=== PATIENT | male | born 1945 | race Caucasian/White ===

== ENCOUNTER 2022-01-24 00:58 | Outpatient (RCR) | payer MEDICARE, OTHER, SELFPAY ==
[2022-01-24] MEDS: Normal Saline Flush 10 ML SYR IVP (09:02)
[2022-01-24 09:06] LABS: Abs Immature Grans 0.04 10^3/uL (0.0-0.06); Absolute Basophil Count 0.03 10^3/uL (0.0-0.2); Absolute Lymphocyte Count 2.53 10^3/uL (1.2-3.4); Absolute Monocyte Count 1.48 10^3/uL (0.1-0.8); Basophils % 0.3; Eosinophils % 2.7; HCT 30.4 % (40.0-50.0); HGB 9.3 g/dL (13.5-17.5); Immature Grans % 0.4; Lymphocytes % 23.1; MCH 26.9 pg (27.0-33.0); MCHC 30.6 % (32.0-36.0); MCV 88 fL (80-95); MPV 10.6 fL (8.0-11.0); Monocytes % 13.5; Platelet Count 455 10^3/uL (130-400); RBC 3.46 10^6/uL (4.36-5.78); RDW 13.3 % (11.8-14.1); WBC 10.97 10^3/uL (4.4-10.8)
[2022-01-24 09:11] LABS: Absolute Neutrophil Count 6.58 10^3/uL (1.2-6.7)
[2022-01-24 09:22] LABS: ALT 14 U/L (16-63); AST 10 U/L (15-37); Albumin 2.6 g/dL (3.4-5.0); Alkaline Phosphatase 104 U/L (46-116); Anion Gap 6.9 mmol/L (3-11); BUN 25 mg/dL (7-18); Bilirubin, Total 0.3 mg/dL (0.2-1.0); CO2 30.1 mmol/L (21.0-32.0); CREATININE 1.2 mg/dL (0.70-1.30); Calcium 8.7 mg/dL (8.5-10.1); Chloride 102 mmol/L (98-107); Estimated GFR 58.56 (mL/min/1.73m2); Glucose 277 mg/dL (74-106); Potassium 4.2 mmol/L (3.5-5.1); Sodium 139 mmol/L (136-145)
[2022-01-24 10:04] LABS: Iron 29 ug/dL (65-175); Total Iron Binding Capacity 317 ug/dL (250-450); Transferrin Sat 9 % (20-55)
[2022-01-24 10:09] LABS: Ferritin 57 ng/mL (26-388)
[2022-01-24 14:19] LABS: Vitamin B12 620 pg/mL (193-986)
[2022-01-24 19:13] LABS: CEA 19.1 ng/mL (See Note)
== END 2022-01-29 23:59 | disposition home or self-care (01) ==
LOC: INF 00:58
PROVIDERS: PCP Internal Medicine; Visit Provider Internal Medicine Hematology & Oncology
DX: C20 Malignant neoplasm of rectum (principal); D64.9 Anemia, unspecified; Z45.2 Encounter for adjustment and management of vascular access device; C78.00 Secondary malignant neoplasm of unspecified lung
CPT/HCPCS: 36591; 80053; 82378; 82607; 82728; 83540; 83550; 85025

== ENCOUNTER 2022-02-28 01:03 | Outpatient (RCR) | payer OTHER, SELFPAY ==
[2022-02-07] MEDS: Normal Saline Flush 10 ML SYR IVP (09:42)
[2022-02-07 09:48] LABS: Abs Immature Grans 0.02 10^3/uL (0.0-0.06); Absolute Basophil Count 0.02 10^3/uL (0.0-0.2); Absolute Eosinophil Count 0.26 10^3/uL (0.0-0.7); Absolute Lymphocyte Count 1.63 10^3/uL (1.2-3.4); Absolute Monocyte Count 1.08 10^3/uL (0.1-0.8); Absolute Neutrophil Count 3.19 10^3/uL (1.2-6.7); Basophils % 0.3; Eosinophils % 4.2; HCT 30.9 % (40.0-50.0); HGB 9.9 g/dL (13.5-17.5); Immature Grans % 0.3; Lymphocytes % 26.3; MCH 27.7 pg (27.0-33.0); MCV 86 fL (80-95); MPV 10.9 fL (8.0-11.0); Monocytes % 17.4; Neutrophils % 51.5; Platelet Count 282 10^3/uL (130-400); RBC 3.58 10^6/uL (4.36-5.78); RDW 14.1 % (11.8-14.1); RDW-SD 42.1 fL
[2022-02-07 10:03] LABS: ALT 23 U/L (16-63); AST 15 U/L (15-37); Albumin 2.5 g/dL (3.4-5.0); Alkaline Phosphatase 105 U/L (46-116); Anion Gap 8.3 mmol/L (3-11); BUN 23 mg/dL (7-18); Bilirubin, Total 0.3 mg/dL (0.2-1.0); CO2 30.7 mmol/L (21.0-32.0); CREATININE 1.1 mg/dL (0.70-1.30); Calcium 9.2 mg/dL (8.5-10.1); Chloride 98 mmol/L (98-107); Estimated GFR 68.71 (mL/min/1.73m2); Glucose 260 mg/dL (74-106); Potassium 3.5 mmol/L (3.5-5.1); Sodium 137 mmol/L (136-145); Total Protein 7.1 g/dL (6.4-8.2)
[2022-02-07 20:43] LABS: CEA 19.1 ng/mL (See Note)
[2022-02-14] MEDS: Normal Saline Flush 10 ML SYR IVP (08:36)
[2022-02-14 08:47] LABS: Abs Immature Grans 0.08 10^3/uL (0.0-0.06); HCT 34.7 % (40.0-50.0); HGB 10.7 g/dL (13.5-17.5); MCH 26.9 pg (27.0-33.0); MCHC 30.8 % (32.0-36.0); MCV 87 fL (80-95); MPV 10.2 fL (8.0-11.0); Platelet Count 548 10^3/uL (130-400); RBC 3.98 10^6/uL (4.36-5.78); RDW 14.9 % (11.8-14.1); RDW-SD 45.9 fL; WBC 7.92 10^3/uL (4.4-10.8)
[2022-02-14 09:07] LABS: ALT 18 U/L (16-63); AST 15 U/L (15-37); Absolute Basophil Count 0.08 10^3/uL (0.0-0.2); Absolute Eosinophil Count 0.32 10^3/uL (0.0-0.7); Absolute Lymphocyte Count 1.98 10^3/uL (1.2-3.4); Absolute Monocyte Count 1.19 10^3/uL (0.1-0.8); Absolute Neutrophil Count 4.36 10^3/uL (1.2-6.7); Albumin 2.6 g/dL (3.4-5.0); Alkaline Phosphatase 137 U/L (46-116); Anion Gap 6.6 mmol/L (3-11); BUN 24 mg/dL (7-18); Bilirubin, Total 0.3 mg/dL (0.2-1.0); CO2 33.4 mmol/L (21.0-32.0); CREATININE 1.2 mg/dL (0.70-1.30); Calcium 9.8 mg/dL (8.5-10.1); Chloride 95 mmol/L (98-107); Diff Comment Manual Differential; Glucose 380 mg/dL (74-106); Polychromasia Present; Potassium 3.5 mmol/L (3.5-5.1); Sodium 135 mmol/L (136-145); Total Protein 7.2 g/dL (6.4-8.2)
[2022-02-17 07:54] LABS: CEA 17.9 ng/mL (See Note)
[2022-02-28 10:14] LABS: Abs Immature Grans 0.02 10^3/uL (0.0-0.06); Absolute Basophil Count 0.02 10^3/uL (0.0-0.2); Absolute Eosinophil Count 0.22 10^3/uL (0.0-0.7); Absolute Lymphocyte Count 1.74 10^3/uL (1.2-3.4); Absolute Monocyte Count 0.99 10^3/uL (0.1-0.8); Absolute Neutrophil Count 5.39 10^3/uL (1.2-6.7); Basophils % 0.2; Eosinophils % 2.6; HCT 35.9 % (40.0-50.0); HGB 11.1 g/dL (13.5-17.5); Immature Grans % 0.2; Lymphocytes % 20.8; MCH 27.6 pg (27.0-33.0); MCHC 30.9 % (32.0-36.0); MCV 89 fL (80-95); MPV 11.1 fL (8.0-11.0); Monocytes % 11.8; Neutrophils % 64.4; Platelet Count 182 10^3/uL (130-400); RBC 4.02 10^6/uL (4.36-5.78); RDW 17.1 % (11.8-14.1); RDW-SD 49.1 fL; WBC 8.38 10^3/uL (4.4-10.8)
[2022-02-28] MEDS: Normal Saline Flush 10 ML SYR IVP (10:24)
[2022-02-28 10:28] LABS: ALT 23 U/L (16-63); AST 20 U/L (15-37); Albumin 2.9 g/dL (3.4-5.0); Alkaline Phosphatase 109 U/L (46-116); Anion Gap 7.5 mmol/L (3-11); BUN 21 mg/dL (7-18); Bilirubin, Total 0.4 mg/dL (0.2-1.0); CO2 30.5 mmol/L (21.0-32.0); CREATININE 1.2 mg/dL (0.70-1.30); Calcium 9.2 mg/dL (8.5-10.1); Chloride 97 mmol/L (98-107); Glucose 405 mg/dL (74-106); Potassium 3.5 mmol/L (3.5-5.1); Sodium 135 mmol/L (136-145)
== END 2022-02-28 23:59 | disposition home or self-care (01) ==
LOC: INF 01:03
PROVIDERS: PCP Internal Medicine; Visit Provider Internal Medicine Hematology & Oncology
DX: C20 Malignant neoplasm of rectum (principal); Z45.2 Encounter for adjustment and management of vascular access device
CPT/HCPCS: 36591; 80053; 82378; 85025

== ENCOUNTER 2022-03-28 01:25 | Outpatient (RCR) | payer OTHER, SELFPAY ==
[2022-03-14 10:29] LABS: Abs Immature Grans 0.01 10^3/uL (0.0-0.06); Absolute Basophil Count 0.03 10^3/uL (0.0-0.2); Absolute Eosinophil Count 0.08 10^3/uL (0.0-0.7); Absolute Lymphocyte Count 1.67 10^3/uL (1.2-3.4); Absolute Monocyte Count 0.94 10^3/uL (0.1-0.8); Basophils % 0.5; Eosinophils % 1.2; HCT 35.3 % (40.0-50.0); Immature Grans % 0.2; MCH 28.4 pg (27.0-33.0); MCHC 31.2 % (32.0-36.0); MCV 91 fL (80-95); MPV 10.5 fL (8.0-11.0); Monocytes % 14.6; Neutrophils % 57.5; Platelet Count 140 10^3/uL (130-400); RBC 3.87 10^6/uL (4.36-5.78); RDW 19.4 % (11.8-14.1); RDW-SD 60.6 fL; WBC 6.43 10^3/uL (4.4-10.8)
[2022-03-14] MEDS: Normal Saline Flush 10 ML SYR IVP (10:39)
[2022-03-14 11:12] LABS: ALT 24 U/L (16-63); AST 27 U/L (15-37); Albumin 2.9 g/dL (3.4-5.0); Alkaline Phosphatase 85 U/L (46-116); Anion Gap 5.6 mmol/L (3-11); BUN 16 mg/dL (7-18); Bilirubin, Total 0.4 mg/dL (0.2-1.0); CO2 30.4 mmol/L (21.0-32.0); CREATININE 1.2 mg/dL (0.70-1.30); Chloride 104 mmol/L (98-107); Estimated GFR 61.52 (mL/min/1.73m2); Glucose 297 mg/dL (74-106); Sodium 140 mmol/L (136-145); Total Protein 6.5 g/dL (6.4-8.2)
[2022-03-14 20:46] LABS: CEA 8.2 ng/mL (See Note)
[2022-03-28] MEDS: Normal Saline Flush 10 ML SYR IVP (09:29)
[2022-03-28 09:51] LABS: Abs Immature Grans 0.03 10^3/uL (0.0-0.06); Absolute Basophil Count 0.02 10^3/uL (0.0-0.2); Absolute Eosinophil Count 0.12 10^3/uL (0.0-0.7); Absolute Lymphocyte Count 1.49 10^3/uL (1.2-3.4); Absolute Monocyte Count 0.94 10^3/uL (0.1-0.8); Absolute Neutrophil Count 3.33 10^3/uL (1.2-6.7); Basophils % 0.3; HCT 36.4 % (40.0-50.0); HGB 11.6 g/dL (13.5-17.5); Immature Grans % 0.5; Lymphocytes % 25.1; MCH 29.7 pg (27.0-33.0); MCHC 31.9 % (32.0-36.0); MCV 93 fL (80-95); MPV 10.9 fL (8.0-11.0); Monocytes % 15.9; Neutrophils % 56.2; Platelet Count 137 10^3/uL (130-400); RBC 3.91 10^6/uL (4.36-5.78); RDW 21.1 % (11.8-14.1); RDW-SD 69.4 fL; WBC 5.93 10^3/uL (4.4-10.8)
[2022-03-28 10:07] LABS: ALT 23 U/L (16-63); AST 20 U/L (15-37); Alkaline Phosphatase 81 U/L (46-116); Anion Gap 6.7 mmol/L (3-11); BUN 15 mg/dL (7-18); Bilirubin, Total 0.4 mg/dL (0.2-1.0); CO2 29.3 mmol/L (21.0-32.0); CREATININE 1.3 mg/dL (0.70-1.30); Calcium 9.1 mg/dL (8.5-10.1); Chloride 102 mmol/L (98-107); Estimated GFR 55.88 (mL/min/1.73m2); Glucose 352 mg/dL (74-106); Potassium 4.2 mmol/L (3.5-5.1); Sodium 138 mmol/L (136-145); Total Protein 6.5 g/dL (6.4-8.2)
[2022-03-28 10:31] LABS: Anisocytosis 3+; Diff Comment Diff Reviewed; Polychromasia Present
== END 2022-03-31 23:59 | disposition home or self-care (01) ==
LOC: INF 01:25
PROVIDERS: PCP Internal Medicine; Visit Provider Internal Medicine Hematology & Oncology
DX: C20 Malignant neoplasm of rectum (principal); Z45.2 Encounter for adjustment and management of vascular access device
CPT/HCPCS: 36591; 80053; 82378; 85025

== ENCOUNTER → 2022-04-08 02:33 | Outpatient (CLI) | payer OTHER, SELFPAY ==
--- NOTE | 2022-04-08 10:00 | DI.MRI_ITS ---
Exam(s) MR ABDOMEN WO/W EXAM: MR ABDOMEN WO/W CLINICAL HISTORY: RECTAL CT,C20;ABNL CT WITH SUSPICIOUS LIVER LESIONS,R93.2,[id number] TECHNIQUE: Multiplanar multisequence MRI of the Abdomen was performed. CONTRAST MATERIAL: IV Contrast: 20 mL of [place] contrast administered. COMPARISON: CT CT CHEST/ABD/PELVIS W/CONTRAST from 03/21/2022 FINDINGS: The examination is limited due to patient motion artifact. Liver: There is no evidence of a hepatic mass or enhancing lesion. Pancreas: Unremarkable. Gallbladder and Bile Ducts: Status post cholecystectomy. No significant biliary ductal dilatation. Adrenals: The left adrenal nodularity is isointense to the remainder of the adrenal gland. The right adrenal gland is unremarkable. Kidneys: There are bilateral simple cysts in the kidneys. No follow-up is recommended. Spleen: Unremarkable. Bowel: There is diverticulosis seen in the colon. There is an ostomy in the left abdominal wall whic h is incompletely imaged. Aorta: Unremarkable. Soft Tissues: Unremarkable. Bone: Unremarkable. Lymph Nodes: Unremarkable. IMPRESSION: 1. No evidence of a hepatic mass or enhancing lesion. 2. Left adrenal nodule appears stable compared to the CT scan from 03/21/2022. 3. Simple bilateral renal cysts. DATA REPOSITORY:
[2022-04-08] MEDS: Normal Saline - Diluent 50 ML VIAL IV (10:34)
[2022-04-08] MEDS: Gadoterate meglumine 20 ML VIAL IVP (10:37)
== END ==
PROVIDERS: PCP Internal Medicine; Visit Provider Internal Medicine Hematology & Oncology
DX: C20 Malignant neoplasm of rectum (principal); R93.2 Abnormal findings on diagnostic imaging of liver and biliary tract; E27.8 Other specified disorders of adrenal gland
CPT/HCPCS: 74183

== ENCOUNTER 2022-04-25 00:57 | Outpatient (RCR) | payer OTHER, SELFPAY ==
[2022-04-08] MEDS: Heparin 500 UNITS/5 ML SYRINGE IV (09:22)
[2022-04-08] MEDS: Normal Saline Flush 10 ML SYR IVP (09:22)
[2022-04-11] MEDS: Normal Saline Flush 10 ML SYR IVP (09:20)
[2022-04-11 09:30] LABS: Abs Immature Grans 0.01 10^3/uL (0.0-0.06); Absolute Basophil Count 0.02 10^3/uL (0.0-0.2); Absolute Eosinophil Count 0.12 10^3/uL (0.0-0.7); Absolute Lymphocyte Count 1.83 10^3/uL (1.2-3.4); Absolute Monocyte Count 1.06 10^3/uL (0.1-0.8); Absolute Neutrophil Count 3.52 10^3/uL (1.2-6.7); Basophils % 0.3; Eosinophils % 1.8; HGB 11.7 g/dL (13.5-17.5); Immature Grans % 0.2; Lymphocytes % 27.9; MCH 29.9 pg (27.0-33.0); MCHC 31.6 % (32.0-36.0); MCV 95 fL (80-95); MPV 11.4 fL (8.0-11.0); Monocytes % 16.2; Neutrophils % 53.6; Platelet Count 122 10^3/uL (130-400); RBC 3.91 10^6/uL (4.36-5.78); RDW-SD 72.9 fL; WBC 6.56 10^3/uL (4.4-10.8)
[2022-04-11 09:51] LABS: Anisocytosis 2+; Diff Comment RBC Morph Reviewed
[2022-04-11 09:55] LABS: ALT 19 U/L (16-63); AST 24 U/L (15-37); Alkaline Phosphatase 80 U/L (46-116); Anion Gap 5.8 mmol/L (3-11); BUN 16 mg/dL (7-18); Bilirubin, Total 0.5 mg/dL (0.2-1.0); CO2 30.2 mmol/L (21.0-32.0); CREATININE 1.1 mg/dL (0.70-1.30); Calcium 9.1 mg/dL (8.5-10.1); Chloride 104 mmol/L (98-107); Estimated GFR 68.29 (mL/min/1.73m2); Glucose 242 mg/dL (74-106); Potassium 3.8 mmol/L (3.5-5.1); Sodium 140 mmol/L (136-145); Total Protein 6.7 g/dL (6.4-8.2)
[2022-04-11 19:57] LABS: CEA 4.4 ng/mL (See Note)
[2022-04-25] MEDS: Normal Saline Flush 10 ML SYR IVP (09:00)
[2022-04-25 09:01] LABS: Abs Immature Grans 0.02 10^3/uL (0.0-0.06); Absolute Basophil Count 0.03 10^3/uL (0.0-0.2); Absolute Eosinophil Count 0.13 10^3/uL (0.0-0.7); Absolute Lymphocyte Count 1.74 10^3/uL (1.2-3.4); Absolute Monocyte Count 1.03 10^3/uL (0.1-0.8); Basophils % 0.5; Eosinophils % 2.1; HCT 38.7 % (40.0-50.0); HGB 12.2 g/dL (13.5-17.5); Immature Grans % 0.3; Lymphocytes % 27.8; MCH 30.6 pg (27.0-33.0); MCHC 31.5 % (32.0-36.0); MCV 97 fL (80-95); MPV 10.5 fL (8.0-11.0); Monocytes % 16.5; Neutrophils % 52.8; Platelet Count 145 10^3/uL (130-400); RBC 3.99 10^6/uL (4.36-5.78); RDW 19.4 % (11.8-14.1); RDW-SD 69.2 fL; WBC 6.25 10^3/uL (4.4-10.8)
[2022-04-25 09:30] LABS: ALT 22 U/L (16-63); AST 21 U/L (15-37); Albumin 3.1 g/dL (3.4-5.0); Alkaline Phosphatase 81 U/L (46-116); Anion Gap 4.7 mmol/L (3-11); BUN 13 mg/dL (7-18); Bilirubin, Total 0.5 mg/dL (0.2-1.0); CO2 32.3 mmol/L (21.0-32.0); CREATININE 1.1 mg/dL (0.70-1.30); Calcium 9.3 mg/dL (8.5-10.1); Chloride 100 mmol/L (98-107); Estimated GFR 68.29 (mL/min/1.73m2); Glucose 264 mg/dL (74-106); Potassium 3.7 mmol/L (3.5-5.1); Sodium 137 mmol/L (136-145); Total Protein 6.9 g/dL (6.4-8.2)
[2022-04-25 18:49] LABS: CEA 4.1 ng/mL (See Note)
== END 2022-04-30 23:59 | disposition home or self-care (01) ==
LOC: INF 00:57
PROVIDERS: PCP Internal Medicine; Visit Provider Internal Medicine Hematology & Oncology
DX: Z45.2 Encounter for adjustment and management of vascular access device (principal); C20 Malignant neoplasm of rectum
CPT/HCPCS: 36591; 80053; 96523; 82378; 85025

== ENCOUNTER 2022-05-30 10:00 | Outpatient (RCR) | payer OTHER, SELFPAY ==
[2022-05-09] MEDS: Normal Saline Flush 10 ML SYR IVP (10:05)
[2022-05-09 10:18] LABS: Abs Immature Grans 0.01 10^3/uL (0.0-0.06); Absolute Basophil Count 0.03 10^3/uL (0.0-0.2); Absolute Eosinophil Count 0.19 10^3/uL (0.0-0.7); Absolute Lymphocyte Count 1.52 10^3/uL (1.2-3.4); Absolute Neutrophil Count 2.56 10^3/uL (1.2-6.7); Basophils % 0.6; Eosinophils % 3.7; HCT 38.6 % (40.0-50.0); HGB 12.3 g/dL (13.5-17.5); Immature Grans % 0.2; Lymphocytes % 29.7; MCH 30.7 pg (27.0-33.0); MCHC 31.9 % (32.0-36.0); MCV 96 fL (80-95); Monocytes % 15.7; Neutrophils % 50.1; Platelet Count 117 10^3/uL (130-400); RBC 4.01 10^6/uL (4.36-5.78); RDW 17.5 % (11.8-14.1); RDW-SD 63.2 fL; WBC 5.11 10^3/uL (4.4-10.8)
[2022-05-09 10:34] LABS: ALT 27 U/L (16-63); AST 27 U/L (15-37); Albumin 3.1 g/dL (3.4-5.0); Alkaline Phosphatase 77 U/L (46-116); Anion Gap 7.9 mmol/L (3-11); BUN 15 mg/dL (7-18); Bilirubin, Total 0.5 mg/dL (0.2-1.0); CO2 29.1 mmol/L (21.0-32.0); Chloride 101 mmol/L (98-107); Estimated GFR 76.56 (mL/min/1.73m2); Glucose 252 mg/dL (74-106); Potassium 3.5 mmol/L (3.5-5.1); Sodium 138 mmol/L (136-145); Total Protein 6.9 g/dL (6.4-8.2)
[2022-05-09 19:11] LABS: CEA 3.7 ng/mL (See Note)
[2022-05-30 10:08] LABS: Abs Immature Grans 0.03 10^3/uL (0.0-0.06); Absolute Basophil Count 0.04 10^3/uL (0.0-0.2); Absolute Eosinophil Count 0.28 10^3/uL (0.0-0.7); Absolute Monocyte Count 1.18 10^3/uL (0.1-0.8); Absolute Neutrophil Count 4.04 10^3/uL (1.2-6.7); Basophils % 0.6; Eosinophils % 3.9; HCT 38.4 % (40.0-50.0); HGB 12.3 g/dL (13.5-17.5); Immature Grans % 0.4; Lymphocytes % 23.4; MCH 31.9 pg (27.0-33.0); MCV 100 fL (80-95); MPV 10.9 fL (8.0-11.0); Monocytes % 16.2; Neutrophils % 55.5; Platelet Count 222 10^3/uL (130-400); RBC 3.86 10^6/uL (4.36-5.78); RDW 15.3 % (11.8-14.1); RDW-SD 55.1 fL; WBC 7.27 10^3/uL (4.4-10.8)
[2022-05-30] MEDS: Heparin 500 UNITS/5 ML SYRINGE IV (10:08)
[2022-05-30] MEDS: Normal Saline Flush 10 ML SYR IVP (10:08)
[2022-05-30 10:46] LABS: ALT 24 U/L (16-63); AST 27 U/L (15-37); Albumin 2.9 g/dL (3.4-5.0); Alkaline Phosphatase 86 U/L (46-116); Anion Gap 7.1 mmol/L (3-11); BUN 21 mg/dL (7-18); Bilirubin, Total 0.5 mg/dL (0.2-1.0); CO2 28.9 mmol/L (21.0-32.0); CREATININE 1.2 mg/dL (0.70-1.30); Calcium 8.7 mg/dL (8.5-10.1); Chloride 101 mmol/L (98-107); Estimated GFR 61.52 (mL/min/1.73m2); Glucose 278 mg/dL (74-106); Potassium 3.8 mmol/L (3.5-5.1); Sodium 137 mmol/L (136-145)
[2022-05-30 20:47] LABS: CEA 4.4 ng/mL (See Note)
== END 2022-05-31 23:59 | disposition home or self-care (01) ==
LOC: INF 10:00
PROVIDERS: PCP Internal Medicine; Visit Provider Internal Medicine Hematology & Oncology
DX: C20 Malignant neoplasm of rectum (principal); Z45.2 Encounter for adjustment and management of vascular access device
CPT/HCPCS: 36591; 80053; 82378; 85025

== ENCOUNTER 2022-06-27 00:52 | Outpatient (RCR) | payer OTHER, SELFPAY ==
[2022-06-06] MEDS: Normal Saline Flush 10 ML SYR IVP (11:51)
[2022-06-06] MEDS: Heparin 500 UNITS/5 ML SYRINGE IV (11:52)
[2022-06-06 11:57] LABS: Abs Immature Grans 0.03 10^3/uL (0.0-0.06); Absolute Basophil Count 0.05 10^3/uL (0.0-0.2); Absolute Eosinophil Count 0.33 10^3/uL (0.0-0.7); Absolute Lymphocyte Count 1.53 10^3/uL (1.2-3.4); Absolute Monocyte Count 1.06 10^3/uL (0.1-0.8); Absolute Neutrophil Count 5.79 10^3/uL (1.2-6.7); Basophils % 0.6; Eosinophils % 3.8; HCT 39.5 % (40.0-50.0); HGB 12.5 g/dL (13.5-17.5); Immature Grans % 0.3; Lymphocytes % 17.4; MCH 31.6 pg (27.0-33.0); MCHC 31.6 % (32.0-36.0); MCV 100 fL (80-95); MPV 10.9 fL (8.0-11.0); Monocytes % 12.1; Neutrophils % 65.8; Platelet Count 210 10^3/uL (130-400); RBC 3.96 10^6/uL (4.36-5.78); RDW 14.5 % (11.8-14.1); RDW-SD 52.8 fL; WBC 8.79 10^3/uL (4.4-10.8)
[2022-06-06 12:15] LABS: ALT 24 U/L (16-63); AST 28 U/L (15-37); Alkaline Phosphatase 94 U/L (46-116); Anion Gap 6.7 mmol/L (3-11); BUN 16 mg/dL (7-18); Bilirubin, Total 0.7 mg/dL (0.2-1.0); CO2 28.3 mmol/L (21.0-32.0); CREATININE 1.2 mg/dL (0.70-1.30); Chloride 102 mmol/L (98-107); Estimated GFR 61.52 (mL/min/1.73m2); Glucose 283 mg/dL (74-106); Sodium 137 mmol/L (136-145); Total Protein 7.3 g/dL (6.4-8.2)
[2022-06-13] MEDS: Normal Saline Flush 10 ML SYR IVP (09:32)
[2022-06-13] MEDS: Heparin 500 UNITS/5 ML SYRINGE IV (09:33)
[2022-06-13 09:48] LABS: Abs Immature Grans 0.03 10^3/uL (0.0-0.06); Absolute Basophil Count 0.03 10^3/uL (0.0-0.2); Absolute Eosinophil Count 0.42 10^3/uL (0.0-0.7); Absolute Lymphocyte Count 1.03 10^3/uL (1.2-3.4); Absolute Monocyte Count 0.86 10^3/uL (0.1-0.8); Absolute Neutrophil Count 4.12 10^3/uL (1.2-6.7); Basophils % 0.5; Eosinophils % 6.5; HCT 36.6 % (40.0-50.0); HGB 11.7 g/dL (13.5-17.5); Immature Grans % 0.5; Lymphocytes % 15.9; MCH 32.1 pg (27.0-33.0); MCV 100 fL (80-95); MPV 11.4 fL (8.0-11.0); Monocytes % 13.3; Neutrophils % 63.3; Platelet Count 174 10^3/uL (130-400); RBC 3.65 10^6/uL (4.36-5.78); RDW 14.1 % (11.8-14.1); RDW-SD 51.1 fL; WBC 6.49 10^3/uL (4.4-10.8)
[2022-06-13 10:04] LABS: ALT 19 U/L (16-63); AST 24 U/L (15-37); Albumin 2.9 g/dL (3.4-5.0); Alkaline Phosphatase 88 U/L (46-116); Anion Gap 6.6 mmol/L (3-11); BUN 20 mg/dL (7-18); Bilirubin, Total 0.6 mg/dL (0.2-1.0); CO2 29.4 mmol/L (21.0-32.0); CREATININE 1.1 mg/dL (0.70-1.30); Chloride 100 mmol/L (98-107); Estimated GFR 68.29 (mL/min/1.73m2); Glucose 329 mg/dL (74-106); Potassium 4.1 mmol/L (3.5-5.1); Sodium 136 mmol/L (136-145); Total Protein 7.1 g/dL (6.4-8.2)
[2022-06-20] MEDS: Heparin 500 UNITS/5 ML SYRINGE IV (11:19)
[2022-06-20] MEDS: Normal Saline Flush 10 ML SYR IVP (11:19)
[2022-06-20 11:28] LABS: Abs Immature Grans 0.03 10^3/uL (0.0-0.06); Absolute Basophil Count 0.02 10^3/uL (0.0-0.2); Absolute Eosinophil Count 0.57 10^3/uL (0.0-0.7); Absolute Monocyte Count 0.88 10^3/uL (0.1-0.8); Absolute Neutrophil Count 3.36 10^3/uL (1.2-6.7); Basophils % 0.4; Eosinophils % 10.1; HCT 36.4 % (40.0-50.0); HGB 11.9 g/dL (13.5-17.5); Immature Grans % 0.5; Lymphocytes % 14.1; MCH 32.7 pg (27.0-33.0); MCHC 32.7 % (32.0-36.0); MCV 100 fL (80-95); MPV 10.9 fL (8.0-11.0); Monocytes % 15.5; Neutrophils % 59.4; Platelet Count 146 10^3/uL (130-400); RBC 3.64 10^6/uL (4.36-5.78); RDW 14.5 % (11.8-14.1); RDW-SD 50.4 fL; WBC 5.66 10^3/uL (4.4-10.8)
[2022-06-20 11:43] LABS: ALT 23 U/L (16-63); AST 26 U/L (15-37); Albumin 3.1 g/dL (3.4-5.0); Alkaline Phosphatase 88 U/L (46-116); BUN 17 mg/dL (7-18); Bilirubin, Total 0.8 mg/dL (0.2-1.0); CREATININE 1.1 mg/dL (0.70-1.30); Calcium 9.4 mg/dL (8.5-10.1); Chloride 101 mmol/L (98-107); Estimated GFR 68.29 (mL/min/1.73m2); Glucose 318 mg/dL (74-106); Potassium 3.6 mmol/L (3.5-5.1); Sodium 137 mmol/L (136-145); Total Protein 7.2 g/dL (6.4-8.2)
[2022-06-27] MEDS: Heparin 500 UNITS/5 ML SYRINGE IV (11:55)
[2022-06-27] MEDS: Normal Saline Flush 10 ML SYR IVP (11:55)
[2022-06-27 12:08] LABS: Abs Immature Grans 0.02 10^3/uL (0.0-0.06); Absolute Basophil Count 0.02 10^3/uL (0.0-0.2); Absolute Eosinophil Count 0.67 10^3/uL (0.0-0.7); Absolute Lymphocyte Count 0.66 10^3/uL (1.2-3.4); Absolute Monocyte Count 1.13 10^3/uL (0.1-0.8); Absolute Neutrophil Count 4.16 10^3/uL (1.2-6.7); Basophils % 0.3; Eosinophils % 10.1; HCT 35.9 % (40.0-50.0); HGB 11.7 g/dL (13.5-17.5); Immature Grans % 0.3; Lymphocytes % 9.9; MCH 32.8 pg (27.0-33.0); MCHC 32.6 % (32.0-36.0); MCV 101 fL (80-95); MPV 10.5 fL (8.0-11.0); Neutrophils % 62.4; Nucleated RBC 0.3 % (0.0-0.3); Platelet Count 171 10^3/uL (130-400); RBC 3.57 10^6/uL (4.36-5.78); RDW 15.1 % (11.8-14.1); RDW-SD 51.4 fL; WBC 6.66 10^3/uL (4.4-10.8)
[2022-06-27 12:27] LABS: ALT 24 U/L (16-63); AST 27 U/L (15-37); Albumin 3.1 g/dL (3.4-5.0); Alkaline Phosphatase 88 U/L (46-116); Anion Gap 8.2 mmol/L (3-11); BUN 17 mg/dL (7-18); Bilirubin, Total 0.8 mg/dL (0.2-1.0); CO2 29.8 mmol/L (21.0-32.0); CREATININE 1.2 mg/dL (0.70-1.30); Calcium 8.8 mg/dL (8.5-10.1); Chloride 101 mmol/L (98-107); Estimated GFR 61.52 (mL/min/1.73m2); Glucose 240 mg/dL (74-106); Potassium 3.8 mmol/L (3.5-5.1); Sodium 139 mmol/L (136-145)
== END 2022-07-01 23:59 | disposition home or self-care (01) ==
LOC: INF 00:52
PROVIDERS: PCP Internal Medicine; Visit Provider Internal Medicine Hematology & Oncology
DX: Z45.2 Encounter for adjustment and management of vascular access device (principal); C20 Malignant neoplasm of rectum
CPT/HCPCS: 36591; 80053; 85025

== ENCOUNTER 2022-07-23 01:35 | Outpatient (RCR) | payer OTHER, SELFPAY ==
[2022-07-04] MEDS: Normal Saline Flush 10 ML SYR IVP (12:04)
[2022-07-04] MEDS: Heparin 500 UNITS/5 ML SYRINGE IV (12:04)
[2022-07-04 12:10] LABS: Abs Immature Grans 0.04 10^3/uL (0.0-0.06); Absolute Basophil Count 0.02 10^3/uL (0.0-0.2); Absolute Eosinophil Count 0.32 10^3/uL (0.0-0.7); Absolute Lymphocyte Count 0.43 10^3/uL (1.2-3.4); Absolute Monocyte Count 1.59 10^3/uL (0.1-0.8); Basophils % 0.2; Eosinophils % 3.4; HCT 34.1 % (40.0-50.0); HGB 11.1 g/dL (13.5-17.5); Immature Grans % 0.4; Lymphocytes % 4.5; MCHC 32.6 % (32.0-36.0); MCV 102 fL (80-95); MPV 10.5 fL (8.0-11.0); Monocytes % 16.7; Neutrophils % 74.8; Platelet Count 187 10^3/uL (130-400); RBC 3.36 10^6/uL (4.36-5.78); RDW 16.7 % (11.8-14.1); RDW-SD 57.6 fL
[2022-07-04 12:24] LABS: ALT 23 U/L (16-63); AST 29 U/L (15-37); Albumin 2.9 g/dL (3.4-5.0); Alkaline Phosphatase 91 U/L (46-116); Anion Gap 6.8 mmol/L (3-11); BUN 17 mg/dL (7-18); Bilirubin, Total 1.1 mg/dL (0.2-1.0); CO2 29.2 mmol/L (21.0-32.0); CREATININE 1.3 mg/dL (0.70-1.30); Calcium 8.7 mg/dL (8.5-10.1); Chloride 100 mmol/L (98-107); Estimated GFR 55.88 (mL/min/1.73m2); Glucose 221 mg/dL (74-106); Potassium 3.9 mmol/L (3.5-5.1); Sodium 136 mmol/L (136-145); Total Protein 6.7 g/dL (6.4-8.2)
[2022-07-04 12:27] LABS: Diff Comment Diff Reviewed; RBC Morphology Normal
[2022-07-09] MEDS: Normal Saline Flush 10 ML SYR IVP (11:48)
[2022-07-09] MEDS: Heparin 500 UNITS/5 ML SYRINGE IV (11:48)
[2022-07-09 11:58] LABS: Abs Immature Grans 0.12 10^3/uL (0.0-0.06); Absolute Basophil Count 0.03 10^3/uL (0.0-0.2); Absolute Eosinophil Count 0.71 10^3/uL (0.0-0.7); Absolute Lymphocyte Count 0.57 10^3/uL (1.2-3.4); Absolute Monocyte Count 1.47 10^3/uL (0.1-0.8); Absolute Neutrophil Count 3.92 10^3/uL (1.2-6.7); Basophils % 0.4; Eosinophils % 10.4; HCT 35.1 % (40.0-50.0); HGB 11.6 g/dL (13.5-17.5); Immature Grans % 1.8; Lymphocytes % 8.4; MCH 33.5 pg (27.0-33.0); MCV 101 fL (80-95); MPV 10.5 fL (8.0-11.0); Monocytes % 21.6; Neutrophils % 57.4; Platelet Count 217 10^3/uL (130-400); RBC 3.46 10^6/uL (4.36-5.78); RDW 18.1 % (11.8-14.1); RDW-SD 62.9 fL; WBC 6.82 10^3/uL (4.4-10.8)
[2022-07-09 12:13] LABS: ALT 28 U/L (16-63); AST 33 U/L (15-37); Albumin 2.9 g/dL (3.4-5.0); Alkaline Phosphatase 98 U/L (46-116); Anion Gap 9.2 mmol/L (3-11); BUN 11 mg/dL (7-18); Bilirubin, Total 0.7 mg/dL (0.2-1.0); CO2 27.8 mmol/L (21.0-32.0); CREATININE 1.2 mg/dL (0.70-1.30); Calcium 9.1 mg/dL (8.5-10.1); Chloride 100 mmol/L (98-107); Estimated GFR 61.52 (mL/min/1.73m2); Glucose 213 mg/dL (74-106); Potassium 3.7 mmol/L (3.5-5.1); Sodium 137 mmol/L (136-145); Total Protein 6.7 g/dL (6.4-8.2)
[2022-07-23] MEDS: Normal Saline Flush 10 ML SYR IVP (08:20)
[2022-07-23] MEDS: Heparin 500 UNITS/5 ML SYRINGE IV (08:20)
== END 2022-07-29 23:59 | disposition home or self-care (01) ==
LOC: INF 01:35
PROVIDERS: PCP Internal Medicine; Visit Provider Internal Medicine Hematology & Oncology
DX: Z45.2 Encounter for adjustment and management of vascular access device (principal); C20 Malignant neoplasm of rectum
CPT/HCPCS: 36591; 80053; 96523; 85025

== ENCOUNTER 2022-07-30 02:18 | Outpatient (RCR) | payer OTHER, SELFPAY ==
[2022-07-30] MEDS: Normal Saline Flush 10 ML SYR IVP (12:37)
[2022-07-30] MEDS: Heparin 500 UNITS/5 ML SYRINGE IV (12:37)
[2022-07-30 12:45] LABS: Abs Immature Grans 0.03 10^3/uL (0.0-0.06); Absolute Basophil Count 0.02 10^3/uL (0.0-0.2); Absolute Eosinophil Count 0.16 10^3/uL (0.0-0.7); Absolute Monocyte Count 1.01 10^3/uL (0.1-0.8); Absolute Neutrophil Count 3.87 10^3/uL (1.2-6.7); Basophils % 0.3; Eosinophils % 2.6; HCT 35.5 % (40.0-50.0); HGB 11.3 g/dL (13.5-17.5); Immature Grans % 0.5; Lymphocytes % 17.8; MCH 32.8 pg (27.0-33.0); MCHC 31.8 % (32.0-36.0); MCV 103 fL (80-95); MPV 10.9 fL (8.0-11.0); Monocytes % 16.3; Neutrophils % 62.5; Platelet Count 156 10^3/uL (130-400); RBC 3.44 10^6/uL (4.36-5.78); RDW-SD 68.2 fL; WBC 6.19 10^3/uL (4.4-10.8)
[2022-07-30 13:12] LABS: ALT 32 U/L (16-63); AST 30 U/L (15-37); Albumin 2.9 g/dL (3.4-5.0); Alkaline Phosphatase 97 U/L (46-116); Anion Gap 8.2 mmol/L (3-11); BUN 12 mg/dL (7-18); Bilirubin, Total 0.8 mg/dL (0.2-1.0); CO2 28.8 mmol/L (21.0-32.0); CREATININE 1.1 mg/dL (0.70-1.30); Calcium 9.2 mg/dL (8.5-10.1); Chloride 100 mmol/L (98-107); Estimated GFR 68.29 (mL/min/1.73m2); Glucose 266 mg/dL (74-106); Potassium 3.5 mmol/L (3.5-5.1); Sodium 137 mmol/L (136-145); Total Protein 6.9 g/dL (6.4-8.2)
[2022-07-30 22:57] LABS: CEA 3.4 ng/mL (See Note)
== END 2022-08-29 23:59 | disposition home or self-care (01) ==
LOC: INF 02:18
PROVIDERS: PCP Internal Medicine; Visit Provider Internal Medicine Hematology & Oncology
DX: C20 Malignant neoplasm of rectum (principal)
CPT/HCPCS: 80053; 82378; 85025

== ENCOUNTER 2022-09-26 00:55 | Outpatient (RCR) | payer OTHER, SELFPAY ==
[2022-09-12] MEDS: Normal Saline Flush 10 ML SYR IVP (08:14)
[2022-09-12 08:23] LABS: Abs Immature Grans 0.02 10^3/uL (0.0-0.06); Absolute Basophil Count 0.02 10^3/uL (0.0-0.2); Absolute Eosinophil Count 0.13 10^3/uL (0.0-0.7); Absolute Lymphocyte Count 2.24 10^3/uL (1.2-3.4); Absolute Monocyte Count 0.83 10^3/uL (0.1-0.8); Absolute Neutrophil Count 3.63 10^3/uL (1.2-6.7); Basophils % 0.3; Eosinophils % 1.9; HGB 11.7 g/dL (13.5-17.5); Immature Grans % 0.3; Lymphocytes % 32.6; MCH 32.3 pg (27.0-33.0); MCHC 32.5 % (32.0-36.0); MCV 99 fL (80-95); MPV 10.7 fL (8.0-11.0); Monocytes % 12.1; Neutrophils % 52.8; Platelet Count 171 10^3/uL (130-400); RBC 3.62 10^6/uL (4.36-5.78); RDW 14.5 % (11.8-14.1); RDW-SD 52.6 fL; WBC 6.87 10^3/uL (4.4-10.8)
[2022-09-12 08:45] LABS: ALT 29 U/L (16-63); AST 24 U/L (15-37); Alkaline Phosphatase 85 U/L (46-116); Anion Gap 6.8 mmol/L (3-11); BUN 21 mg/dL (7-18); Bilirubin, Total 0.6 mg/dL (0.2-1.0); CO2 30.2 mmol/L (21.0-32.0); CREATININE 1.2 mg/dL (0.70-1.30); Calcium 8.7 mg/dL (8.5-10.1); Chloride 103 mmol/L (98-107); Estimated GFR 61.52 (mL/min/1.73m2); Glucose 272 mg/dL (74-106); Potassium 3.6 mmol/L (3.5-5.1); Sodium 140 mmol/L (136-145)
[2022-09-12 09:44] LABS: Magnesium 2.3 mg/dL (1.8-2.4)
[2022-09-12 19:19] LABS: CEA 4.4 ng/mL (See Note)
[2022-09-26] MEDS: Normal Saline Flush 10 ML SYR IVP (08:42)
[2022-09-26 08:50] LABS: Abs Immature Grans 0.01 10^3/uL (0.0-0.06); Absolute Basophil Count 0.02 10^3/uL (0.0-0.2); Absolute Eosinophil Count 0.25 10^3/uL (0.0-0.7); Absolute Lymphocyte Count 1.99 10^3/uL (1.2-3.4); Absolute Monocyte Count 0.54 10^3/uL (0.1-0.8); Absolute Neutrophil Count 1.56 10^3/uL (1.2-6.7); Basophils % 0.5; Eosinophils % 5.7; HCT 37.3 % (40.0-50.0); HGB 12.4 g/dL (13.5-17.5); Immature Grans % 0.2; Lymphocytes % 45.5; MCH 31.8 pg (27.0-33.0); MCHC 33.2 % (32.0-36.0); MCV 96 fL (80-95); Monocytes % 12.4; Neutrophils % 35.7; Platelet Count 186 10^3/uL (130-400); RDW 13.7 % (11.8-14.1); RDW-SD 48.2 fL; WBC 4.37 10^3/uL (4.4-10.8)
[2022-09-26 09:07] LABS: ALT 40 U/L (16-63); AST 28 U/L (15-37); Albumin 3.2 g/dL (3.4-5.0); Alkaline Phosphatase 88 U/L (46-116); Anion Gap 5.2 mmol/L (3-11); BUN 17 mg/dL (7-18); Bilirubin, Total 0.7 mg/dL (0.2-1.0); CO2 29.8 mmol/L (21.0-32.0); CREATININE 1.2 mg/dL (0.70-1.30); Calcium 9.2 mg/dL (8.5-10.1); Chloride 103 mmol/L (98-107); Estimated GFR 61.52 (mL/min/1.73m2); Glucose 211 mg/dL (74-106); Magnesium 1.1 mg/dL (1.8-2.4); Potassium 3.3 mmol/L (3.5-5.1); Sodium 138 mmol/L (136-145); Total Protein 7.2 g/dL (6.4-8.2)
[2022-09-26 21:55] LABS: CEA 3.4 ng/mL (See Note)
== END 2022-09-28 23:59 | disposition home or self-care (01) ==
LOC: INF 00:55
PROVIDERS: PCP Internal Medicine; Visit Provider Internal Medicine Hematology & Oncology
DX: Z45.2 Encounter for adjustment and management of vascular access device (principal); C79.9 Secondary malignant neoplasm of unspecified site; C20 Malignant neoplasm of rectum
CPT/HCPCS: 36591; 80053; 82378; 83735; 85025

== ENCOUNTER 2022-10-24 00:57 | Outpatient (RCR) | payer OTHER, SELFPAY ==
[2022-10-10] MEDS: Normal Saline Flush 10 ML SYR IVP (08:40)
[2022-10-10 08:45] LABS: Abs Immature Grans 0.01 10^3/uL (0.0-0.06); Absolute Basophil Count 0.02 10^3/uL (0.0-0.2); Absolute Eosinophil Count 0.11 10^3/uL (0.0-0.7); Absolute Lymphocyte Count 1.71 10^3/uL (1.2-3.4); Absolute Monocyte Count 0.53 10^3/uL (0.1-0.8); Absolute Neutrophil Count 1.56 10^3/uL (1.2-6.7); Basophils % 0.5; Eosinophils % 2.8; HCT 35.1 % (40.0-50.0); HGB 11.7 g/dL (13.5-17.5); Immature Grans % 0.3; Lymphocytes % 43.4; MCH 31.8 pg (27.0-33.0); MCHC 33.3 % (32.0-36.0); MCV 95 fL (80-95); MPV 9.8 fL (8.0-11.0); Monocytes % 13.5; Neutrophils % 39.5; Platelet Count 196 10^3/uL (130-400); RBC 3.68 10^6/uL (4.36-5.78); RDW-SD 48.8 fL; WBC 3.94 10^3/uL (4.4-10.8)
[2022-10-10 08:59] LABS: ALT 37 U/L (16-63); AST 26 U/L (15-37); Alkaline Phosphatase 87 U/L (46-116); Anion Gap 6.5 mmol/L (3-11); BUN 17 mg/dL (7-18); Bilirubin, Total 0.4 mg/dL (0.2-1.0); CO2 29.5 mmol/L (21.0-32.0); CREATININE 1.1 mg/dL (0.70-1.30); Chloride 103 mmol/L (98-107); Estimated GFR 68.29 (mL/min/1.73m2); Glucose 230 mg/dL (74-106); Magnesium 1.2 mg/dL (1.8-2.4); Potassium 3.2 mmol/L (3.5-5.1); Sodium 139 mmol/L (136-145); Total Protein 6.5 g/dL (6.4-8.2)
[2022-10-10 20:18] LABS: CEA 3.2 ng/mL (See Note)
[2022-10-24] MEDS: Normal Saline Flush 10 ML SYR IVP (08:34)
[2022-10-24 09:07] LABS: Abs Immature Grans 0.03 10^3/uL (0.0-0.06); Absolute Basophil Count 0.03 10^3/uL (0.0-0.2); Absolute Eosinophil Count 0.21 10^3/uL (0.0-0.7); Absolute Lymphocyte Count 1.62 10^3/uL (1.2-3.4); Absolute Monocyte Count 0.79 10^3/uL (0.1-0.8); Absolute Neutrophil Count 3.75 10^3/uL (1.2-6.7); Basophils % 0.5; Eosinophils % 3.3; HCT 37.1 % (40.0-50.0); HGB 12.3 g/dL (13.5-17.5); Immature Grans % 0.5; Lymphocytes % 25.2; MCH 31.2 pg (27.0-33.0); MCHC 33.2 % (32.0-36.0); MCV 94 fL (80-95); MPV 9.9 fL (8.0-11.0); Monocytes % 12.3; Neutrophils % 58.2; Platelet Count 239 10^3/uL (130-400); RBC 3.94 10^6/uL (4.36-5.78); RDW 14.3 % (11.8-14.1); RDW-SD 48.8 fL; WBC 6.43 10^3/uL (4.4-10.8)
[2022-10-24 09:09] LABS: ALT 32 U/L (16-63); AST 22 U/L (15-37); Alkaline Phosphatase 94 U/L (46-116); Anion Gap 6.7 mmol/L (3-11); BUN 14 mg/dL (7-18); Bilirubin, Total 0.4 mg/dL (0.2-1.0); CO2 30.3 mmol/L (21.0-32.0); Calcium 8.6 mg/dL (8.5-10.1); Chloride 101 mmol/L (98-107); Estimated GFR 76.56 (mL/min/1.73m2); Glucose 243 mg/dL (74-106); Magnesium 1.2 mg/dL (1.8-2.4); Potassium 3.4 mmol/L (3.5-5.1); Sodium 138 mmol/L (136-145); Total Protein 6.6 g/dL (6.4-8.2)
[2022-10-24 20:31] LABS: CEA 3.1 ng/mL (See Note)
== END 2022-10-29 23:59 | disposition home or self-care (01) ==
LOC: INF 00:57
PROVIDERS: PCP Internal Medicine; Visit Provider Internal Medicine Hematology & Oncology
DX: Z45.2 Encounter for adjustment and management of vascular access device (principal); C20 Malignant neoplasm of rectum
CPT/HCPCS: 36591; 80053; 82378; 83735; 85025

== ENCOUNTER 2022-11-13 00:49 | Outpatient (CLI) | payer OTHER, SELFPAY ==
[2022-11-13] MEDS: Barium Sulfate 2% W/V-Berry Smoothie 450 ML BTL 900 ML PO (08:39)
[2022-11-13] MEDS: Normal Saline - Diluent 50 ML VIAL IJ (10:36)
[2022-11-13] MEDS: Omnipaque 350 MG/ML 500 ML BTL-Imaging package IJ (10:36)
[2022-11-13] MEDS: Normal Saline Flush 10 ML SYR IVP (10:37)
--- NOTE | 2022-11-13 10:50 | DI.CT_ITS ---
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 TECHNIQUE: Imaging Protocol: Axial computed tomography images with coronal and sagittal reformatted images were created and reviewed CONTRAST MATERIAL: Intravenous: Omnipaque 350 Contrast volume:100 ml Oral: Yes. Oral contrast was also administered for bowel opacification. COMPARISON: CT CT CHEST/ABD/PELVIS W/CONTRAST from 03/21/[address] CHEST/ABD/PEL W from 07/23/2022 FINDINGS: CHEST: LUNGS: Surgical changes in the right lung remain on changed. The size of the previously described no dule in the medial aspect of the right lower lobe presently measures 1.4 by 1.0 cm, indicating slight further growth from the prior CT scans. There are no new additional lung nodules in either lung fie ld. There are no pleural effusions. No new findings in the trachea and mainstem bronchi per. MEDIASTINUM: There is no new hilar nor mediastinal adenopathy. Visualized thyroid unremarkable. CARDIAC: Sternotomy wires. Heart size is normal. No pericardial effusion.Diameter of the descending thoracic aorta is enlarged, measuring 3.9 cm. No dissection evident. OSSEOUS: No fractures. ABDOMEN: There is no ascites. LIVER: There are no focal hepatic lesions nor dilatation of intrahepatic ducts. GALLBLADDER/BILIARY: Is again noted be surgically absent. CBD diameter is slightly prominent, commen surate with post cholecystectomy status. PANCREAS: No evidence of pancreatic mass nor dilatation of the pancreatic duct. SPLEEN: Spleen is not enlarged. There are no intrasplenic lesions. Splenic and portal veins are funez nt. ADRENALS: There are no significant adrenal masses. KIDNEYS: No calculi nor hydronephrosis. No solid renal masses. No cysts evident. ABDOMINAL AORTA: Abdominal aorta is not enlarged. LYMPH NODES: There is no retroperitoneal nor paraaortic adenopathy. ABDOMINAL WALL: Left-sided double-lumen colostomy again noted. No evidence of bowel obstruction. GI: The mass adjacent to the right side of the rectum appears unchanged from 07/23/2022. Thickening of the internal left-side rectal wall there is less than previous. PELVIS: LYMPH NODES: There is no intrapelvic nor inguinal adenopathy. GI: No evidence of appendicitis.Sigmoid diverticuli but no evidence of acute diverticulitis. URINARY BLADDER: There is diffuse uniform thickening of the urinary bladder wall consistent with sr. consultant kristian cystitis. REPRODUCTIVE: Prostate gland is not enlarged. Seminal vesicles unremarkable. OSSEOUS: No significant osseous lesions. No fractures IMPRESSION: 1. The size of the solitary lung nodule in the medial basal segment of the right lower lobe has sligh tly further increased, presently measuring 14 x 10. No new additional lung nodules evident. No infi ltrates nor pleural effusions nor increasing intrathoracic adenopathy. 2. Enlarged ascending thoracic aorta with diameter 3.9 cm. No dissection. Sternotomy wires again no bella. 3. Double lumen left-sided colostomy again noted. No bowel obstruction. 4. Previously described mass intimately associated with the rectum exhibits minimal if any significan t change when compared to the CT scan of 07/23/2022.. 5. There is prominent uniform thickening of the urinary bladder wall, most probably consistent with cystitis and/or radiation change. RADIATION DOSE DELIVERED: 2,426.27mGy.cm Total DLP DATA REPOSITORY: All CT scans at this facility are submitted to the National Radiology Data Registry (NRDR) Dose Index Registry (DIR) with the [employer] ([employer]). RADIATION OPTIMIZATION: All CT scans at this facility use at least one of these dose optimization te chniques: automated exposure control; mA and/or kV adjustment per patient size (includes targeted exa ms where dose is matched to clinical indication); or iterative reconstruction.
== END 2022-11-13 01:09 ==
PROVIDERS: PCP Internal Medicine; Visit Provider Nurse Practitioner Family
DX: C20 Malignant neoplasm of rectum (principal); C78.00 Secondary malignant neoplasm of unspecified lung; R91.8 Other nonspecific abnormal finding of lung field
CPT/HCPCS: 74177; 71260

== ENCOUNTER 2022-11-21 00:02 | Outpatient (RCR) | payer OTHER, SELFPAY ==
[2022-11-07] MEDS: Normal Saline Flush 10 ML SYR IVP (09:06)
[2022-11-07 09:11] LABS: Abs Immature Grans 0.01 10^3/uL (0.0-0.06); Absolute Basophil Count 0.03 10^3/uL (0.0-0.2); Absolute Monocyte Count 0.62 10^3/uL (0.1-0.8); Absolute Neutrophil Count 2.28 10^3/uL (1.2-6.7); Basophils % 0.7; Eosinophils % 2.3; HCT 35.8 % (40.0-50.0); HGB 11.9 g/dL (13.5-17.5); Immature Grans % 0.2; Lymphocytes % 31.5; MCH 31.5 pg (27.0-33.0); MCHC 33.2 % (32.0-36.0); MCV 95 fL (80-95); MPV 9.9 fL (8.0-11.0); Neutrophils % 51.3; Platelet Count 211 10^3/uL (130-400); RBC 3.78 10^6/uL (4.36-5.78); RDW 15.1 % (11.8-14.1); RDW-SD 51.8 fL; WBC 4.44 10^3/uL (4.4-10.8)
[2022-11-07 09:27] LABS: ALT 31 U/L (16-63); AST 21 U/L (15-37); Albumin 3.1 g/dL (3.4-5.0); Alkaline Phosphatase 83 U/L (46-116); Anion Gap 6.6 mmol/L (3-11); BUN 18 mg/dL (7-18); Bilirubin, Total 0.4 mg/dL (0.2-1.0); CO2 29.4 mmol/L (21.0-32.0); Calcium 8.9 mg/dL (8.5-10.1); Chloride 106 mmol/L (98-107); Estimated GFR 76.56 (mL/min/1.73m2); Glucose 186 mg/dL (74-106); Potassium 3.4 mmol/L (3.5-5.1); Sodium 142 mmol/L (136-145); Total Protein 6.6 g/dL (6.4-8.2)
[2022-11-07 11:43] LABS: Magnesium 1.3 mg/dL (1.8-2.4)
[2022-11-13] MEDS: Heparin 500 UNITS/5 ML SYRINGE IV (08:48)
[2022-11-13] MEDS: Normal Saline Flush 10 ML SYR IVP (08:48)
[2022-11-21 09:28] LABS: Abs Immature Grans 0.02 10^3/uL (0.0-0.06); Absolute Basophil Count 0.02 10^3/uL (0.0-0.2); Absolute Lymphocyte Count 1.46 10^3/uL (1.2-3.4); Absolute Monocyte Count 0.61 10^3/uL (0.1-0.8); Absolute Neutrophil Count 1.85 10^3/uL (1.2-6.7); Basophils % 0.5; Eosinophils % 2.5; HCT 34.7 % (40.0-50.0); HGB 11.5 g/dL (13.5-17.5); Immature Grans % 0.5; MCH 31.1 pg (27.0-33.0); MCHC 33.1 % (32.0-36.0); MCV 94 fL (80-95); MPV 10.2 fL (8.0-11.0); Neutrophils % 45.5; Platelet Count 210 10^3/uL (130-400); RDW 15.7 % (11.8-14.1); RDW-SD 53.9 fL; WBC 4.06 10^3/uL (4.4-10.8)
[2022-11-21] MEDS: Normal Saline Flush 10 ML SYR IVP (09:47)
[2022-11-21 09:49] LABS: ALT 30 U/L (16-63); AST 23 U/L (15-37); Albumin 3.2 g/dL (3.4-5.0); Alkaline Phosphatase 86 U/L (46-116); Anion Gap 8.2 mmol/L (3-11); BUN 19 mg/dL (7-18); Bilirubin, Total 0.5 mg/dL (0.2-1.0); CO2 29.8 mmol/L (21.0-32.0); Calcium 8.6 mg/dL (8.5-10.1); Chloride 105 mmol/L (98-107); Estimated GFR 76.56 (mL/min/1.73m2); Glucose 222 mg/dL (74-106); Magnesium 1.3 mg/dL (1.8-2.4); Potassium 3.4 mmol/L (3.5-5.1); Sodium 143 mmol/L (136-145); Total Protein 6.5 g/dL (6.4-8.2)
== END 2022-11-28 23:59 | disposition home or self-care (01) ==
LOC: INF 00:02
PROVIDERS: PCP Internal Medicine; Visit Provider Internal Medicine Hematology & Oncology
DX: C20 Malignant neoplasm of rectum (principal); Z45.2 Encounter for adjustment and management of vascular access device
CPT/HCPCS: 36591; 80053; 96523; 82378; 83735; 85025

== ENCOUNTER 2022-12-19 01:08 | Outpatient (RCR) | payer OTHER, SELFPAY ==
[2022-12-05] MEDS: Normal Saline Flush 10 ML SYR IVP (09:05)
[2022-12-05 09:26] LABS: Abs Immature Grans 0.04 10^3/uL (0.0-0.06); Absolute Basophil Count 0.02 10^3/uL (0.0-0.2); Absolute Eosinophil Count 0.15 10^3/uL (0.0-0.7); Absolute Lymphocyte Count 1.69 10^3/uL (1.2-3.4); Absolute Monocyte Count 0.73 10^3/uL (0.1-0.8); Absolute Neutrophil Count 3.19 10^3/uL (1.2-6.7); Basophils % 0.3; Eosinophils % 2.6; HCT 35.2 % (40.0-50.0); HGB 11.6 g/dL (13.5-17.5); Immature Grans % 0.7; MCH 31.4 pg (27.0-33.0); MCV 95 fL (80-95); MPV 10.2 fL (8.0-11.0); Monocytes % 12.5; Neutrophils % 54.9; Platelet Count 225 10^3/uL (130-400); RBC 3.69 10^6/uL (4.36-5.78); RDW 15.9 % (11.8-14.1); WBC 5.82 10^3/uL (4.4-10.8)
[2022-12-05 09:44] LABS: ALT 29 U/L (16-63); AST 22 U/L (15-37); Albumin 3.1 g/dL (3.4-5.0); Alkaline Phosphatase 93 U/L (46-116); Anion Gap 9.4 mmol/L (3-11); BUN 19 mg/dL (7-18); Bilirubin, Total 0.4 mg/dL (0.2-1.0); CO2 27.6 mmol/L (21.0-32.0); CREATININE 1.1 mg/dL (0.70-1.30); Calcium 8.6 mg/dL (8.5-10.1); Chloride 105 mmol/L (98-107); Estimated GFR 68.29 (mL/min/1.73m2); Glucose 217 mg/dL (74-106); Magnesium 1.2 mg/dL (1.8-2.4); Potassium 3.6 mmol/L (3.5-5.1); Sodium 142 mmol/L (136-145); Total Protein 6.3 g/dL (6.4-8.2)
[2022-12-05 21:03] LABS: CEA 3.2 ng/mL (See Note)
[2022-12-19 09:46] LABS: Abs Immature Grans 0.02 10^3/uL (0.0-0.06); Absolute Basophil Count 0.03 10^3/uL (0.0-0.2); Absolute Lymphocyte Count 1.32 10^3/uL (1.2-3.4); Absolute Monocyte Count 0.55 10^3/uL (0.1-0.8); Absolute Neutrophil Count 2.85 10^3/uL (1.2-6.7); Basophils % 0.6; Eosinophils % 2.1; HCT 34.1 % (40.0-50.0); HGB 11.2 g/dL (13.5-17.5); Immature Grans % 0.4; Lymphocytes % 27.1; MCH 31.7 pg (27.0-33.0); MCHC 32.8 % (32.0-36.0); MCV 97 fL (80-95); Monocytes % 11.3; Neutrophils % 58.5; Platelet Count 225 10^3/uL (130-400); RBC 3.53 10^6/uL (4.36-5.78); RDW-SD 57.1 fL; WBC 4.87 10^3/uL (4.4-10.8)
[2022-12-19 09:57] LABS: ALT 27 U/L (16-63); AST 19 U/L (15-37); Albumin 3.2 g/dL (3.4-5.0); Alkaline Phosphatase 88 U/L (46-116); Anion Gap 5.9 mmol/L (3-11); BUN 21 mg/dL (7-18); Bilirubin, Total 0.5 mg/dL (0.2-1.0); CO2 29.1 mmol/L (21.0-32.0); CREATININE 1.2 mg/dL (0.70-1.30); Calcium 8.5 mg/dL (8.5-10.1); Chloride 107 mmol/L (98-107); Estimated GFR 61.52 (mL/min/1.73m2); Glucose 204 mg/dL (74-106); Magnesium 1.3 mg/dL (1.8-2.4); Potassium 3.6 mmol/L (3.5-5.1); Sodium 142 mmol/L (136-145); Total Protein 6.3 g/dL (6.4-8.2)
[2022-12-19] MEDS: Normal Saline Flush 10 ML SYR IVP (10:13)
== END 2022-12-29 23:59 | disposition home or self-care (01) ==
LOC: INF 01:08
PROVIDERS: PCP Internal Medicine; Visit Provider Internal Medicine Hematology & Oncology
DX: Z45.2 Encounter for adjustment and management of vascular access device (principal); C79.9 Secondary malignant neoplasm of unspecified site; C20 Malignant neoplasm of rectum
CPT/HCPCS: 36591; 80053; 82378; 83735; 85025

== ENCOUNTER 2023-01-16 02:00 | Outpatient (RCR) | payer OTHER, SELFPAY ==
[2023-01-02] MEDS: Normal Saline Flush 10 ML SYR IVP (10:03)
[2023-01-02 10:11] LABS: Abs Immature Grans 0.02 10^3/uL (0.0-0.06); Absolute Basophil Count 0.02 10^3/uL (0.0-0.2); Absolute Eosinophil Count 0.09 10^3/uL (0.0-0.7); Absolute Lymphocyte Count 1.29 10^3/uL (1.2-3.4); Absolute Monocyte Count 0.65 10^3/uL (0.1-0.8); Absolute Neutrophil Count 3.02 10^3/uL (1.2-6.7); Basophils % 0.4; Eosinophils % 1.8; HCT 34.6 % (40.0-50.0); HGB 11.5 g/dL (13.5-17.5); Immature Grans % 0.4; Lymphocytes % 25.3; MCH 32.7 pg (27.0-33.0); MCHC 33.2 % (32.0-36.0); MCV 98 fL (80-95); MPV 10.1 fL (8.0-11.0); Monocytes % 12.8; Neutrophils % 59.3; Platelet Count 229 10^3/uL (130-400); RBC 3.52 10^6/uL (4.36-5.78); RDW 15.5 % (11.8-14.1); RDW-SD 55.8 fL; WBC 5.09 10^3/uL (4.4-10.8)
[2023-01-02 10:27] LABS: ALT 26 U/L (16-63); AST 20 U/L (15-37); Albumin 3.2 g/dL (3.4-5.0); Alkaline Phosphatase 84 U/L (46-116); Anion Gap 5.8 mmol/L (3-11); BUN 19 mg/dL (7-18); Bilirubin, Total 0.4 mg/dL (0.2-1.0); CO2 28.2 mmol/L (21.0-32.0); CREATININE 1.1 mg/dL (0.70-1.30); Calcium 8.7 mg/dL (8.5-10.1); Chloride 106 mmol/L (98-107); Estimated GFR 68.29 (mL/min/1.73m2); Glucose 197 mg/dL (74-106); Magnesium 1.2 mg/dL (1.8-2.4); Sodium 140 mmol/L (136-145); Total Protein 6.4 g/dL (6.4-8.2)
[2023-01-16] MEDS: Normal Saline Flush 10 ML SYR IVP (08:11)
[2023-01-16 08:43] LABS: Abs Immature Grans 0.01 10^3/uL (0.0-0.06); Absolute Basophil Count 0.03 10^3/uL (0.0-0.2); Absolute Eosinophil Count 0.09 10^3/uL (0.0-0.7); Absolute Lymphocyte Count 1.68 10^3/uL (1.2-3.4); Absolute Monocyte Count 0.73 10^3/uL (0.1-0.8); Absolute Neutrophil Count 2.87 10^3/uL (1.2-6.7); Basophils % 0.6; Eosinophils % 1.7; HCT 35.1 % (40.0-50.0); HGB 11.3 g/dL (13.5-17.5); Immature Grans % 0.2; Lymphocytes % 31.1; MCHC 32.2 % (32.0-36.0); MCV 99 fL (80-95); MPV 10.3 fL (8.0-11.0); Monocytes % 13.5; Neutrophils % 52.9; Platelet Count 227 10^3/uL (130-400); RBC 3.53 10^6/uL (4.36-5.78); RDW 14.9 % (11.8-14.1); RDW-SD 54.4 fL; WBC 5.41 10^3/uL (4.4-10.8)
[2023-01-16 08:58] LABS: ALT 26 U/L (16-63); AST 17 U/L (15-37); Albumin 3.1 g/dL (3.4-5.0); Alkaline Phosphatase 87 U/L (46-116); Anion Gap 7.5 mmol/L (3-11); BUN 20 mg/dL (7-18); Bilirubin, Total 0.3 mg/dL (0.2-1.0); CO2 29.5 mmol/L (21.0-32.0); CREATININE 1.1 mg/dL (0.70-1.30); Calcium 8.8 mg/dL (8.5-10.1); Chloride 108 mmol/L (98-107); Estimated GFR 68.29 (mL/min/1.73m2); Glucose 212 mg/dL (74-106); Magnesium 1.2 mg/dL (1.8-2.4); Potassium 3.6 mmol/L (3.5-5.1); Sodium 145 mmol/L (136-145); Total Protein 6.3 g/dL (6.4-8.2)
== END 2023-01-29 23:59 | disposition home or self-care (01) ==
LOC: INF 02:00
PROVIDERS: PCP Internal Medicine; Visit Provider Internal Medicine Hematology & Oncology
DX: C79.9 Secondary malignant neoplasm of unspecified site (principal); C20 Malignant neoplasm of rectum
CPT/HCPCS: 36591; 80053; 82378; 83735; 85025

== ENCOUNTER 2023-02-27 02:49 | Outpatient (RCR) | payer OTHER, SELFPAY ==
[2023-01-30] MEDS: Normal Saline Flush 10 ML SYR IVP (09:35)
[2023-01-30 09:39] LABS: Abs Immature Grans 0.03 10^3/uL (0.0-0.06); Absolute Basophil Count 0.02 10^3/uL (0.0-0.2); Absolute Eosinophil Count 0.13 10^3/uL (0.0-0.7); Absolute Lymphocyte Count 1.27 10^3/uL (1.2-3.4); Absolute Monocyte Count 0.67 10^3/uL (0.1-0.8); Absolute Neutrophil Count 3.52 10^3/uL (1.2-6.7); Basophils % 0.4; Eosinophils % 2.3; HCT 36.7 % (40.0-50.0); HGB 11.9 g/dL (13.5-17.5); Immature Grans % 0.5; Lymphocytes % 22.5; MCH 32.3 pg (27.0-33.0); MCHC 32.4 % (32.0-36.0); MCV 100 fL (80-95); MPV 9.9 fL (8.0-11.0); Monocytes % 11.9; Neutrophils % 62.4; Platelet Count 231 10^3/uL (130-400); RBC 3.68 10^6/uL (4.36-5.78); RDW 14.5 % (11.8-14.1); RDW-SD 52.5 fL; WBC 5.64 10^3/uL (4.4-10.8)
[2023-01-30 09:55] LABS: ALT 29 U/L (16-63); AST 18 U/L (15-37); Albumin 3.2 g/dL (3.4-5.0); Alkaline Phosphatase 92 U/L (46-116); Anion Gap 7.1 mmol/L (3-11); BUN 19 mg/dL (7-18); Bilirubin, Total 0.3 mg/dL (0.2-1.0); CO2 29.9 mmol/L (21.0-32.0); CREATININE 1.1 mg/dL (0.70-1.30); Chloride 105 mmol/L (98-107); Estimated GFR 68.29 (mL/min/1.73m2); Glucose 189 mg/dL (74-106); Magnesium 1.2 mg/dL (1.8-2.4); Potassium 3.8 mmol/L (3.5-5.1); Sodium 142 mmol/L (136-145); Total Protein 6.5 g/dL (6.4-8.2)
[2023-02-02 10:11] LABS: CEA 2.6 ng/mL (See Note)
[2023-02-11] MEDS: Normal Saline Flush 10 ML SYR IVP (07:11)
[2023-02-11] MEDS: Heparin 500 UNITS/5 ML SYRINGE IV (07:11)
[2023-02-13] MEDS: Normal Saline Flush 10 ML SYR IVP (09:17)
[2023-02-13 09:30] LABS: Abs Immature Grans 0.02 10^3/uL (0.0-0.06); Absolute Basophil Count 0.02 10^3/uL (0.0-0.2); Absolute Eosinophil Count 0.14 10^3/uL (0.0-0.7); Absolute Lymphocyte Count 1.26 10^3/uL (1.2-3.4); Absolute Monocyte Count 0.68 10^3/uL (0.1-0.8); Absolute Neutrophil Count 3.25 10^3/uL (1.2-6.7); Basophils % 0.4; Eosinophils % 2.6; HCT 37.4 % (40.0-50.0); HGB 11.9 g/dL (13.5-17.5); Immature Grans % 0.4; Lymphocytes % 23.5; MCH 31.7 pg (27.0-33.0); MCHC 31.8 % (32.0-36.0); MCV 100 fL (80-95); MPV 10.6 fL (8.0-11.0); Monocytes % 12.7; Neutrophils % 60.4; Platelet Count 210 10^3/uL (130-400); RBC 3.75 10^6/uL (4.36-5.78); RDW 13.6 % (11.8-14.1); RDW-SD 50.2 fL; WBC 5.37 10^3/uL (4.4-10.8)
[2023-02-13 09:54] LABS: ALT 30 U/L (16-63); AST 17 U/L (15-37); Albumin 3.2 g/dL (3.4-5.0); Alkaline Phosphatase 83 U/L (46-116); Anion Gap 7.1 mmol/L (3-11); BUN 19 mg/dL (7-18); Bilirubin, Total 0.4 mg/dL (0.2-1.0); CO2 28.9 mmol/L (21.0-32.0); Calcium 9.2 mg/dL (8.5-10.1); Chloride 106 mmol/L (98-107); Estimated GFR 76.56 (mL/min/1.73m2); Glucose 180 mg/dL (74-106); Magnesium 1.4 mg/dL (1.8-2.4); Potassium 3.9 mmol/L (3.5-5.1); Sodium 142 mmol/L (136-145); Total Protein 6.4 g/dL (6.4-8.2)
[2023-02-13 20:35] LABS: CEA 2.5 ng/mL (See Note)
[2023-02-27] MEDS: Normal Saline Flush 10 ML SYR IVP (08:04)
[2023-02-27 08:16] LABS: Abs Immature Grans 0.02 10^3/uL (0.0-0.06); Absolute Basophil Count 0.02 10^3/uL (0.0-0.2); Absolute Eosinophil Count 0.15 10^3/uL (0.0-0.7); Absolute Lymphocyte Count 1.18 10^3/uL (1.2-3.4); Absolute Monocyte Count 0.76 10^3/uL (0.1-0.8); Absolute Neutrophil Count 4.22 10^3/uL (1.2-6.7); Basophils % 0.3; Eosinophils % 2.4; HCT 35.2 % (40.0-50.0); HGB 11.2 g/dL (13.5-17.5); Immature Grans % 0.3; Lymphocytes % 18.6; MCH 31.2 pg (27.0-33.0); MCHC 31.8 % (32.0-36.0); MCV 98 fL (80-95); MPV 10.5 fL (8.0-11.0); Neutrophils % 66.4; Platelet Count 196 10^3/uL (130-400); RBC 3.59 10^6/uL (4.36-5.78); RDW 13.4 % (11.8-14.1); RDW-SD 48.3 fL; WBC 6.35 10^3/uL (4.4-10.8)
[2023-02-27 08:33] LABS: ALT 26 U/L (16-63); AST 21 U/L (15-37); Alkaline Phosphatase 82 U/L (46-116); Anion Gap 7.4 mmol/L (3-11); BUN 17 mg/dL (7-18); Bilirubin, Total 0.4 mg/dL (0.2-1.0); CO2 27.6 mmol/L (21.0-32.0); CREATININE 1.1 mg/dL (0.70-1.30); Calcium 8.7 mg/dL (8.5-10.1); Chloride 104 mmol/L (98-107); Estimated GFR 68.29 (mL/min/1.73m2); Glucose 274 mg/dL (74-106); Magnesium 1.2 mg/dL (1.8-2.4); Potassium 3.6 mmol/L (3.5-5.1); Sodium 139 mmol/L (136-145); Total Protein 6.2 g/dL (6.4-8.2)
[2023-02-27 18:34] LABS: CEA 3.1 ng/mL (See Note)
== END 2023-02-28 23:59 | disposition home or self-care (01) ==
LOC: INF 02:49
PROVIDERS: PCP Internal Medicine; Visit Provider Internal Medicine Hematology & Oncology
DX: C79.9 Secondary malignant neoplasm of unspecified site (principal); C20 Malignant neoplasm of rectum; Z45.2 Encounter for adjustment and management of vascular access device
CPT/HCPCS: 36591; 80053; 96523; 82378; 83735; 85025

== ENCOUNTER 2023-03-27 00:56 | Outpatient (RCR) | payer OTHER, SELFPAY ==
[2023-03-13] MEDS: Normal Saline Flush 10 ML SYR IVP (08:34)
[2023-03-13 08:37] LABS: Abs Immature Grans 0.01 10^3/uL (0.0-0.06); Absolute Basophil Count 0.03 10^3/uL (0.0-0.2); Absolute Lymphocyte Count 1.44 10^3/uL (1.2-3.4); Absolute Monocyte Count 0.69 10^3/uL (0.1-0.8); Absolute Neutrophil Count 2.41 10^3/uL (1.2-6.7); Basophils % 0.6; Eosinophils % 2.1; HCT 35.7 % (40.0-50.0); HGB 11.4 g/dL (13.5-17.5); Immature Grans % 0.2; Lymphocytes % 30.8; MCH 30.9 pg (27.0-33.0); MCHC 31.9 % (32.0-36.0); MCV 97 fL (80-95); MPV 10.3 fL (8.0-11.0); Monocytes % 14.7; Neutrophils % 51.6; Platelet Count 284 10^3/uL (130-400); RBC 3.69 10^6/uL (4.36-5.78); RDW 13.3 % (11.8-14.1); RDW-SD 47.7 fL; WBC 4.68 10^3/uL (4.4-10.8)
[2023-03-13 08:53] LABS: ALT 32 U/L (16-63); AST 23 U/L (15-37); Albumin 2.9 g/dL (3.4-5.0); Alkaline Phosphatase 96 U/L (46-116); BUN 18 mg/dL (7-18); Bilirubin, Total 0.3 mg/dL (0.2-1.0); Calcium 8.8 mg/dL (8.5-10.1); Chloride 105 mmol/L (98-107); Estimated GFR 76.08 (mL/min/1.73m2); Glucose 196 mg/dL (74-106); Magnesium 1.6 mg/dL (1.8-2.4); Potassium 4.1 mmol/L (3.5-5.1); Sodium 139 mmol/L (136-145); Total Protein 6.4 g/dL (6.4-8.2)
[2023-03-13 19:40] LABS: CEA 3.9 ng/mL (See Note)
[2023-03-27] MEDS: Normal Saline Flush 10 ML SYR IVP (09:36)
[2023-03-27 09:54] LABS: Abs Immature Grans 0.01 10^3/uL (0.0-0.06); Absolute Basophil Count 0.02 10^3/uL (0.0-0.2); Absolute Lymphocyte Count 1.19 10^3/uL (1.2-3.4); Absolute Monocyte Count 0.61 10^3/uL (0.1-0.8); Absolute Neutrophil Count 1.88 10^3/uL (1.2-6.7); Basophils % 0.5; Eosinophils % 2.6; HCT 36.2 % (40.0-50.0); HGB 11.5 g/dL (13.5-17.5); Immature Grans % 0.3; Lymphocytes % 31.2; MCH 30.8 pg (27.0-33.0); MCHC 31.8 % (32.0-36.0); MCV 97 fL (80-95); MPV 10.9 fL (8.0-11.0); Neutrophils % 49.4; Platelet Count 179 10^3/uL (130-400); RBC 3.73 10^6/uL (4.36-5.78); RDW 14.3 % (11.8-14.1); RDW-SD 50.7 fL; WBC 3.81 10^3/uL (4.4-10.8)
[2023-03-27 10:07] LABS: ALT 25 U/L (16-63); AST 20 U/L (15-37); Albumin 3.2 g/dL (3.4-5.0); Alkaline Phosphatase 79 U/L (46-116); Anion Gap 7.8 mmol/L (3-11); BUN 21 mg/dL (7-18); Bilirubin, Total 0.4 mg/dL (0.2-1.0); CO2 28.2 mmol/L (21.0-32.0); Calcium 9.2 mg/dL (8.5-10.1); Chloride 106 mmol/L (98-107); Estimated GFR 76.08 (mL/min/1.73m2); Glucose 193 mg/dL (74-106); Magnesium 1.4 mg/dL (1.8-2.4); Potassium 3.8 mmol/L (3.5-5.1); Sodium 142 mmol/L (136-145); Total Protein 6.3 g/dL (6.4-8.2)
[2023-03-27 23:00] LABS: CEA 3.6 ng/mL (See Note)
== END 2023-03-31 23:59 | disposition home or self-care (01) ==
LOC: INF 00:56
PROVIDERS: PCP Internal Medicine; Visit Provider Internal Medicine Hematology & Oncology
DX: C79.9 Secondary malignant neoplasm of unspecified site (principal); C20 Malignant neoplasm of rectum; Z45.2 Encounter for adjustment and management of vascular access device
CPT/HCPCS: 36591; 80053; 82378; 83735; 85025

== ENCOUNTER 2023-04-10 03:55 | Outpatient (RCR) | payer OTHER, SELFPAY ==
[2023-04-10] MEDS: Normal Saline Flush 10 ML SYR IVP (08:39)
[2023-04-10 09:08] LABS: Abs Immature Grans 0.02 10^3/uL (0.0-0.06); Absolute Basophil Count 0.01 10^3/uL (0.0-0.2); Absolute Eosinophil Count 0.12 10^3/uL (0.0-0.7); Absolute Lymphocyte Count 1.22 10^3/uL (1.2-3.4); Absolute Monocyte Count 0.71 10^3/uL (0.1-0.8); Absolute Neutrophil Count 2.66 10^3/uL (1.2-6.7); Basophils % 0.2; Eosinophils % 2.5; HCT 36.4 % (40.0-50.0); HGB 11.6 g/dL (13.5-17.5); Immature Grans % 0.4; Lymphocytes % 25.7; MCH 31.1 pg (27.0-33.0); MCHC 31.9 % (32.0-36.0); MCV 98 fL (80-95); MPV 11.2 fL (8.0-11.0); Neutrophils % 56.2; Platelet Count 219 10^3/uL (130-400); RBC 3.73 10^6/uL (4.36-5.78); RDW 14.6 % (11.8-14.1); RDW-SD 51.8 fL; WBC 4.74 10^3/uL (4.4-10.8)
[2023-04-10 09:16] LABS: ALT 25 U/L (16-63); AST 20 U/L (15-37); Albumin 3.1 g/dL (3.4-5.0); Alkaline Phosphatase 78 U/L (46-116); Anion Gap 7.4 mmol/L (3-11); BUN 15 mg/dL (7-18); Bilirubin, Total 0.4 mg/dL (0.2-1.0); CO2 26.6 mmol/L (21.0-32.0); Chloride 106 mmol/L (98-107); Estimated GFR 76.08 (mL/min/1.73m2); Glucose 179 mg/dL (74-106); Magnesium 1.4 mg/dL (1.8-2.4); Sodium 140 mmol/L (136-145); Total Protein 6.4 g/dL (6.4-8.2)
[2023-04-10 18:52] LABS: CEA 4.3 ng/mL (See Note)
== END 2023-04-30 23:59 | disposition home or self-care (01) ==
LOC: INF 03:55
PROVIDERS: PCP Internal Medicine; Visit Provider Internal Medicine Hematology & Oncology
DX: C79.9 Secondary malignant neoplasm of unspecified site (principal); C20 Malignant neoplasm of rectum; Z45.2 Encounter for adjustment and management of vascular access device
CPT/HCPCS: 36591; 80053; 82378; 83735; 85025

== ENCOUNTER 2023-05-29 02:33 | Outpatient (RCR) | payer OTHER, SELFPAY ==
[2023-05-01] MEDS: Normal Saline Flush 10 ML SYR IVP (09:17)
[2023-05-01 09:43] LABS: Abs Immature Grans 0.03 10^3/uL (0.0-0.06); Absolute Basophil Count 0.03 10^3/uL (0.0-0.2); Absolute Eosinophil Count 0.16 10^3/uL (0.0-0.7); Absolute Lymphocyte Count 1.27 10^3/uL (1.2-3.4); Absolute Monocyte Count 0.81 10^3/uL (0.1-0.8); Basophils % 0.6; Eosinophils % 3.1; HCT 37.1 % (40.0-50.0); HGB 11.7 g/dL (13.5-17.5); Immature Grans % 0.6; Lymphocytes % 24.4; MCH 30.5 pg (27.0-33.0); MCHC 31.5 % (32.0-36.0); MCV 97 fL (80-95); MPV 11.5 fL (8.0-11.0); Monocytes % 15.6; Neutrophils % 55.7; Platelet Count 229 10^3/uL (130-400); RBC 3.83 10^6/uL (4.36-5.78); RDW 15.1 % (11.8-14.1); RDW-SD 53.3 fL
[2023-05-01 09:59] LABS: ALT 23 U/L (16-63); AST 23 U/L (15-37); Albumin 3.1 g/dL (3.4-5.0); Alkaline Phosphatase 76 U/L (46-116); Anion Gap 5.3 mmol/L (3-11); BUN 15 mg/dL (7-18); Bilirubin, Total 0.4 mg/dL (0.2-1.0); CO2 30.7 mmol/L (21.0-32.0); CREATININE 1.2 mg/dL (0.70-1.30); Calcium 8.7 mg/dL (8.5-10.1); Chloride 105 mmol/L (98-107); Estimated GFR 61.13 (mL/min/1.73m2); Glucose 210 mg/dL (74-106); Magnesium 1.2 mg/dL (1.8-2.4); Sodium 141 mmol/L (136-145); Total Protein 6.3 g/dL (6.4-8.2)
[2023-05-01 21:15] LABS: CEA 4.6 ng/mL (See Note)
[2023-05-15] MEDS: Normal Saline Flush 10 ML SYR IVP (09:00)
[2023-05-15 09:30] LABS: Abs Immature Grans 0.04 10^3/uL (0.0-0.06); Absolute Basophil Count 0.02 10^3/uL (0.0-0.2); Absolute Eosinophil Count 0.12 10^3/uL (0.0-0.7); Absolute Lymphocyte Count 1.43 10^3/uL (1.2-3.4); Absolute Monocyte Count 0.56 10^3/uL (0.1-0.8); Absolute Neutrophil Count 2.09 10^3/uL (1.2-6.7); Basophils % 0.5; Eosinophils % 2.8; HCT 35.4 % (40.0-50.0); HGB 11.2 g/dL (13.5-17.5); Immature Grans % 0.9; Lymphocytes % 33.6; MCH 30.2 pg (27.0-33.0); MCHC 31.6 % (32.0-36.0); MCV 95 fL (80-95); MPV 11.5 fL (8.0-11.0); Monocytes % 13.1; Neutrophils % 49.1; Platelet Count 191 10^3/uL (130-400); RBC 3.71 10^6/uL (4.36-5.78); RDW 14.7 % (11.8-14.1); RDW-SD 51.2 fL; WBC 4.26 10^3/uL (4.4-10.8)
[2023-05-15 09:51] LABS: ALT 21 U/L (16-63); AST 22 U/L (15-37); Alkaline Phosphatase 79 U/L (46-116); Anion Gap 5.9 mmol/L (3-11); BUN 25 mg/dL (7-18); Bilirubin, Total 0.3 mg/dL (0.2-1.0); CO2 29.1 mmol/L (21.0-32.0); CREATININE 1.1 mg/dL (0.70-1.30); Calcium 8.4 mg/dL (8.5-10.1); Chloride 105 mmol/L (98-107); Estimated GFR 67.86 (mL/min/1.73m2); Glucose 192 mg/dL (74-106); Magnesium 0.9 mg/dL (1.8-2.4); Potassium 3.9 mmol/L (3.5-5.1); Sodium 140 mmol/L (136-145); Total Protein 6.4 g/dL (6.4-8.2)
[2023-05-15 21:11] LABS: CEA 5.1 ng/mL (See Note)
[2023-05-18 09:07] LABS: Magnesium 1.2 mg/dL (1.8-2.4)
[2023-05-18] MEDS: Normal Saline Flush 10 ML SYR IVP (11:52)
[2023-05-18] MEDS: Heparin 500 UNITS/5 ML SYRINGE IV (11:56)
[2023-05-29] MEDS: Normal Saline Flush 10 ML SYR IVP (08:30)
[2023-05-29 09:04] LABS: Abs Immature Grans 0.02 10^3/uL (0.0-0.06); Absolute Basophil Count 0.03 10^3/uL (0.0-0.2); Absolute Eosinophil Count 0.19 10^3/uL (0.0-0.7); Absolute Lymphocyte Count 1.22 10^3/uL (1.2-3.4); Absolute Monocyte Count 0.99 10^3/uL (0.1-0.8); Absolute Neutrophil Count 4.27 10^3/uL (1.2-6.7); Basophils % 0.4; Eosinophils % 2.8; HCT 35.6 % (40.0-50.0); HGB 11.2 g/dL (13.5-17.5); Immature Grans % 0.3; Lymphocytes % 18.2; MCH 30.3 pg (27.0-33.0); MCHC 31.5 % (32.0-36.0); MCV 96 fL (80-95); MPV 11.7 fL (8.0-11.0); Monocytes % 14.7; Neutrophils % 63.6; Platelet Count 195 10^3/uL (130-400); RDW 15.1 % (11.8-14.1); RDW-SD 53.9 fL; WBC 6.72 10^3/uL (4.4-10.8)
[2023-05-29 09:20] LABS: ALT 16 U/L (16-63); AST 18 U/L (15-37); Albumin 2.8 g/dL (3.4-5.0); Alkaline Phosphatase 84 U/L (46-116); Anion Gap 7.6 mmol/L (3-11); BUN 22 mg/dL (7-18); Bilirubin, Total 0.4 mg/dL (0.2-1.0); CO2 27.4 mmol/L (21.0-32.0); CREATININE 1.1 mg/dL (0.70-1.30); Calcium 8.7 mg/dL (8.5-10.1); Chloride 106 mmol/L (98-107); Estimated GFR 67.86 (mL/min/1.73m2); Glucose 200 mg/dL (74-106); Magnesium 1.3 mg/dL (1.8-2.4); Potassium 3.8 mmol/L (3.5-5.1); Sodium 141 mmol/L (136-145); Total Protein 6.2 g/dL (6.4-8.2)
[2023-05-30 12:59] LABS: CEA 6.4 ng/mL (See Note)
== END 2023-05-31 23:59 | disposition home or self-care (01) ==
LOC: INF 02:33
PROVIDERS: PCP Internal Medicine; Visit Provider Internal Medicine Hematology & Oncology
DX: C79.9 Secondary malignant neoplasm of unspecified site (principal); C20 Malignant neoplasm of rectum; Z45.2 Encounter for adjustment and management of vascular access device
CPT/HCPCS: 36591; 80053; 82378; 83735; 85025

== ENCOUNTER 2023-06-26 01:09 | Outpatient (RCR) | payer OTHER, SELFPAY ==
[2023-06-05] MEDS: Normal Saline Flush 10 ML SYR IVP (12:23)
[2023-06-05 12:41] LABS: Abs Immature Grans 0.04 10^3/uL (0.0-0.06); Absolute Basophil Count 0.03 10^3/uL (0.0-0.2); Absolute Eosinophil Count 0.15 10^3/uL (0.0-0.7); Absolute Monocyte Count 0.75 10^3/uL (0.1-0.8); Absolute Neutrophil Count 4.56 10^3/uL (1.2-6.7); Basophils % 0.5; Eosinophils % 2.3; HCT 35.4 % (40.0-50.0); HGB 11.1 g/dL (13.5-17.5); Immature Grans % 0.6; Lymphocytes % 15.3; MCH 30.1 pg (27.0-33.0); MCHC 31.4 % (32.0-36.0); MCV 96 fL (80-95); MPV 11.3 fL (8.0-11.0); Monocytes % 11.5; Neutrophils % 69.8; Platelet Count 193 10^3/uL (130-400); RBC 3.69 10^6/uL (4.36-5.78); RDW 14.9 % (11.8-14.1); RDW-SD 52.8 fL; WBC 6.53 10^3/uL (4.4-10.8)
[2023-06-05 13:08] LABS: ALT 23 U/L (16-63); AST 22 U/L (15-37); Albumin 3.1 g/dL (3.4-5.0); Alkaline Phosphatase 97 U/L (46-116); Anion Gap 6.8 mmol/L (3-11); BUN 27 mg/dL (7-18); Bilirubin, Total 0.4 mg/dL (0.2-1.0); CO2 29.2 mmol/L (21.0-32.0); CREATININE 1.2 mg/dL (0.70-1.30); Calcium 8.9 mg/dL (8.5-10.1); Chloride 106 mmol/L (98-107); Estimated GFR 61.13 (mL/min/1.73m2); Glucose 192 mg/dL (74-106); Magnesium 1.9 mg/dL (1.8-2.4); Potassium 4.5 mmol/L (3.5-5.1); Sodium 142 mmol/L (136-145); Total Protein 6.7 g/dL (6.4-8.2)
[2023-06-26] MEDS: Normal Saline Flush 10 ML SYR IVP (12:04)
[2023-06-26 12:20] LABS: Abs Immature Grans 0.02 10^3/uL (0.0-0.06); Absolute Basophil Count 0.02 10^3/uL (0.0-0.2); Absolute Eosinophil Count 0.12 10^3/uL (0.0-0.7); Absolute Lymphocyte Count 0.84 10^3/uL (1.2-3.4); Absolute Monocyte Count 0.77 10^3/uL (0.1-0.8); Absolute Neutrophil Count 3.54 10^3/uL (1.2-6.7); Basophils % 0.4; Eosinophils % 2.3; HGB 11.6 g/dL (13.5-17.5); Immature Grans % 0.4; Lymphocytes % 15.8; MCH 31.4 pg (27.0-33.0); MCHC 32.2 % (32.0-36.0); MCV 97 fL (80-95); MPV 10.4 fL (8.0-11.0); Monocytes % 14.5; Neutrophils % 66.6; Platelet Count 185 10^3/uL (130-400); RDW 17.8 % (11.8-14.1); RDW-SD 53.3 fL; WBC 5.31 10^3/uL (4.4-10.8)
[2023-06-26 12:35] LABS: ALT 25 U/L (16-63); AST 24 U/L (15-37); Albumin 3.2 g/dL (3.4-5.0); Alkaline Phosphatase 87 U/L (46-116); Anion Gap 7.1 mmol/L (3-11); BUN 19 mg/dL (7-18); Bilirubin, Total 0.9 mg/dL (0.2-1.0); CO2 29.9 mmol/L (21.0-32.0); CREATININE 1.2 mg/dL (0.70-1.30); Calcium 8.5 mg/dL (8.5-10.1); Chloride 105 mmol/L (98-107); Estimated GFR 61.13 (mL/min/1.73m2); Glucose 147 mg/dL (74-106); Magnesium 1.6 mg/dL (1.8-2.4); Sodium 142 mmol/L (136-145); Total Protein 6.6 g/dL (6.4-8.2)
== END 2023-07-01 23:59 | disposition home or self-care (01) ==
LOC: INF 01:09
PROVIDERS: PCP Internal Medicine; Visit Provider Internal Medicine Hematology & Oncology
DX: C20 Malignant neoplasm of rectum; Z45.2 Encounter for adjustment and management of vascular access device
CPT/HCPCS: 36591; 80053; 82378; 83735; 85025

== ENCOUNTER 2023-07-08 02:27 | Outpatient (RCR) | payer OTHER, SELFPAY ==
[2023-07-08] MEDS: Normal Saline Flush 10 ML SYR IVP (12:05)
[2023-07-08 12:32] LABS: Abs Immature Grans 0.02 10^3/uL (0.0-0.06); Absolute Basophil Count 0.02 10^3/uL (0.0-0.2); Absolute Eosinophil Count 0.09 10^3/uL (0.0-0.7); Absolute Lymphocyte Count 1.02 10^3/uL (1.2-3.4); Absolute Monocyte Count 0.66 10^3/uL (0.1-0.8); Absolute Neutrophil Count 3.68 10^3/uL (1.2-6.7); Basophils % 0.4; Eosinophils % 1.6; HCT 37.9 % (40.0-50.0); HGB 11.9 g/dL (13.5-17.5); Immature Grans % 0.4; Lymphocytes % 18.6; MCH 30.8 pg (27.0-33.0); MCHC 31.4 % (32.0-36.0); MCV 98 fL (80-95); Platelet Count 173 10^3/uL (130-400); RBC 3.86 10^6/uL (4.36-5.78); RDW 17.1 % (11.8-14.1); RDW-SD 57.7 fL; WBC 5.49 10^3/uL (4.4-10.8)
[2023-07-08 12:48] LABS: ALT 22 U/L (16-63); AST 22 U/L (15-37); Albumin 3.3 g/dL (3.4-5.0); Alkaline Phosphatase 96 U/L (46-116); Anion Gap 7.2 mmol/L (3-11); BUN 17 mg/dL (7-18); Bilirubin, Total 0.7 mg/dL (0.2-1.0); CO2 28.8 mmol/L (21.0-32.0); CREATININE 1.1 mg/dL (0.70-1.30); Calcium 8.7 mg/dL (8.5-10.1); Chloride 104 mmol/L (98-107); Estimated GFR 67.86 (mL/min/1.73m2); Glucose 156 mg/dL (74-106); Magnesium 1.7 mg/dL (1.8-2.4); Potassium 4.6 mmol/L (3.5-5.1); Sodium 140 mmol/L (136-145)
[2023-07-14 10:18] LABS: CEA 10.3 ng/mL (See Note)
== END 2023-07-30 23:59 | disposition home or self-care (01) ==
LOC: INF 02:27
PROVIDERS: PCP Internal Medicine; Visit Provider Internal Medicine Hematology & Oncology
DX: C20 Malignant neoplasm of rectum; Z45.2 Encounter for adjustment and management of vascular access device
CPT/HCPCS: 36591; 80053; 82378; 83735; 85025

== ENCOUNTER 2023-07-31 01:11 | Outpatient (RCR) | payer OTHER, SELFPAY ==
[2023-07-31] MEDS: Normal Saline Flush 10 ML SYR IVP (13:17)
[2023-07-31 13:32] LABS: Abs Immature Grans 0.01 10^3/uL (0.0-0.06); Absolute Basophil Count 0.02 10^3/uL (0.0-0.2); Absolute Eosinophil Count 0.11 10^3/uL (0.0-0.7); Absolute Lymphocyte Count 0.81 10^3/uL (1.2-3.4); Absolute Monocyte Count 1.03 10^3/uL (0.1-0.8); Absolute Neutrophil Count 4.87 10^3/uL (1.2-6.7); Basophils % 0.3; Eosinophils % 1.6; HCT 38.4 % (40.0-50.0); HGB 12.1 g/dL (13.5-17.5); Immature Grans % 0.1; Lymphocytes % 11.8; MCH 31.3 pg (27.0-33.0); MCHC 31.5 % (32.0-36.0); MCV 100 fL (80-95); MPV 10.9 fL (8.0-11.0); Neutrophils % 71.2; Platelet Count 178 10^3/uL (130-400); RBC 3.86 10^6/uL (4.36-5.78); RDW 20.3 % (11.8-14.1); WBC 6.85 10^3/uL (4.4-10.8)
[2023-07-31 13:38] LABS: Bilirubin Small (Negative); Blood Small (Negative); Clarity Clear (Clear); Glucose Negative (Negative); Ketones Negative (Negative); Leukocyte Esterase Negative (Negative); Nitrite Negative (Negative); Specific Gravity >= 1.030 (1.005-1.025); Urobilinogen 0.2 mg/dL (Up to 0.2); pH 5.5 (5-8)
[2023-07-31 13:45] LABS: ALT 17 U/L (16-63); AST 25 U/L (15-37); Albumin 3.4 g/dL (3.4-5.0); Alkaline Phosphatase 94 U/L (46-116); Anion Gap 8.7 mmol/L (3-11); Anisocytosis 2+; BUN 30 mg/dL (7-18); CO2 28.3 mmol/L (21.0-32.0); CREATININE 1.4 mg/dL (0.70-1.30); Calcium 8.9 mg/dL (8.5-10.1); Chloride 106 mmol/L (98-107); Diff Comment RBC Morph Reviewed; Epithelial Cells Moderate HPF (Negative); Estimated GFR 50.81 (mL/min/1.73m2); Glucose 167 mg/dL (74-106); Magnesium 1.6 mg/dL (1.8-2.4); Potassium 4.2 mmol/L (3.5-5.1); Sodium 143 mmol/L (136-145); Total Protein 6.9 g/dL (6.4-8.2); WBC Negative HPF (0-5)
[2023-07-31 13:46] LABS: Bacteria Rare HPF (Negative); C & S Indicated? No; Casts 3-5 Hyaline LPF (Negative); Crystals Negative HPF (Negative); Mucus Trace (Negative)
[2023-07-31 22:12] LABS: CEA 14.1 ng/mL (See Note)
== END 2023-08-30 23:59 | disposition home or self-care (01) ==
LOC: INF 01:11
PROVIDERS: PCP Internal Medicine; Visit Provider Internal Medicine Hematology & Oncology
DX: C79.9 Secondary malignant neoplasm of unspecified site (principal); C20 Malignant neoplasm of rectum; Z45.2 Encounter for adjustment and management of vascular access device
CPT/HCPCS: 36591; 80053; 81003; 81015; 82378; 83735; 85025